=== PATIENT | female | born 1955 | race Two or more races ===

== ENCOUNTER 2017-04-24 20:32 | Emergency (ER) | payer MEDICAID, OTHER ==
[~2017-04-24] VITALS: Ht 157.5 cm; Wt 100.2 kg
[2017-04-24] MEDS ORDERED: cloNIDine HCL 0.1 MG TAB ONE (20:45)
[2017-04-24] MEDS ORDERED: cloNIDine HCL 0.1 MG TAB PO ONE (21:00)
[2017-04-24 22:43] VITALS: BP 138/71
[2017-04-24] MEDS ORDERED: KETOROLAC TROMETH 60MG/2ML VIAL IM ONE (23:15)
[2017-04-24] MEDS ORDERED: HYDROcodone-ACET 5/325MG TAB PO ONE (23:15)
== END 2017-04-25 00:02 | disposition home or self-care (01) ==
LOC: ER 20:32
DX: S20.211A Contusion of right front wall of thorax, initial encounter (principal); I50.9 Heart failure, unspecified; I11.0 Hypertensive heart disease with heart failure; E11.9 Type 2 diabetes mellitus without complications; E78.5 Hyperlipidemia, unspecified; V43.52XA Car driver injured in collision with other type car in traffic accident, initial encounter; Y93.89 Activity, other specified; Y92.488 Other paved roadways as the place of occurrence of the external cause; Y99.8 Other external cause status
CPT/HCPCS: 71010; 73030; 96372; 99284; J1885

== ENCOUNTER 2017-10-03 09:30 | Inpatient (IN) | payer OTHER, MEDICAID ==
[~2017-10-03] VITALS: Ht 157.5 cm; Wt 87.2 kg
[2017-10-03 10:19] LABS: Basophils # (auto) 0 uL; Basophils % (auto) 0.4 % (0.0-2.0); Eosinophils # (auto) 0 uL; Eosinophils % (auto) 0.5 % (0.0-7.0); Lymphocytes # (auto) 0.5 uL; Lymphocytes % (auto) 7.5 % (10.0-50.0); Mean Corpuscular Hemoglobin 31.7 pg (28.0-32.0); Mean Corpuscular Hgb Conc. 32.4 g/dL (32.0-36.0); Mean Corpuscular Volume 97.9 fL (80.0-100.0); Monocytes # (auto) 0.3 uL; Monocytes % (auto) 5.4 % (0.0-12.0); Neutrophils # (auto) 5.5 uL; Neutrophils % (auto) 86.2 % (37.0-80.0); Platelet Count (auto) 196 10^3/uL (140-450); Red Blood Cells 3.16 10^6/uL (4.0-5.20); Red Cell Distribution Width 16.2 % (11.8-14.3); White Blood Cell 6.3 10^3/uL (4.4-10.8)
[2017-10-03 10:24] LABS: Albumin 2.8 g/dL (3.4-5.0); BUN/Creatinine Ratio 18.6; Bilirubin, Total 0.3 mg/dL (0.2-1.0); Calcium 8.4 mg/dL (8.5-10.1); Magnesium 2.5 mg/dL (1.6-2.6); Total Protein 7.4 g/dL (6.4-8.2)
[2017-10-03 10:31] LABS: Potassium 5.6 mmol/L (3.5-5.1)
[2017-10-03] MEDS ORDERED: FUROSEMIDE 40 MG/4 ML VIAL IV ONE (16:45)
[2017-10-03] MEDS ORDERED: cefTRIAXone 1GM/10ml IVPUSH 10 ML IV ONE (16:45)
[2017-10-03] MEDS ORDERED: ALBUTEROL SULF 2.5 MG/0.5ML(0.5%) NEB SOLN NEB PRN (17:00)
[2017-10-03] MEDS ORDERED: LORazepam 0.5 MG TAB PO PRN (17:00)
[2017-10-03] MEDS ORDERED: LACTULOSE 20Gm/30ML SOLN PO PRN (17:00)
[2017-10-03] MEDS ORDERED: DEXTROSE (50%) 50ML SYRG IV PRN (17:00)
[2017-10-03] MEDS ORDERED: ACETAMINOPHEN 500 MG TAB PO PRN (17:00)
[2017-10-03] MEDS ORDERED: NITROGLYCERIN 0.4 MG SL TAB SL PRN (17:00)
[2017-10-03] MEDS ORDERED: LEVOFLOXACIN 500MG 100 ML IV ONE (17:00)
[2017-10-03] MEDS ORDERED: amLODIPine BESYLATE 5 MG TAB PO ONE (17:00)
[2017-10-03] MEDS ORDERED: ISOSORBIDE DINITRATE 10 MG TAB PO ONE (17:00)
[2017-10-03] MEDS ORDERED: MORPHINE SULFATE 4 MG/ML SYR/VIAL IV PRN ×2 (17:00)
[2017-10-03] MEDS ORDERED: HYDROcodone-ACET 5/325MG TAB PO PRN (17:00)
[2017-10-03] MEDS ORDERED: PROMETHAZINE HCL 25 MG/ML 1ML IV PRN (17:00)
[2017-10-03 17:20] LABS: INR 0.94 (0.9-1.15); Partial Thromboplastin Time 25.9 sec (22.64-33.71); Prothrombin Time 10.2 sec (9.37-12.3)
[2017-10-03 17:46] LABS: Alcohol, Urine < 3.0 mg/dL (0-5); Amphetamine Screen, Urine NEGATIVE (NEGATIVE); Barbiturate Scree,Urine NEGATIVE (NEGATIVE); Benzodiazephine Screen, Urine NEGATIVE (NEGATIVE); Cannabinoid Screen, Urine NEGATIVE (NEGATIVE); Cocaine Screen, Urine NEGATIVE (NEGATIVE); Opiate Scree,Urine NEGATIVE (NEGATIVE); Phencyclidine Screen, Urine NEGATIVE (NEGATIVE)
[2017-10-03 18:00] LABS: Urine Bacteria MANY /hpf (None Seen); Urine Blood 1+ /uL (Negative); Urine Budding Yeast MODERATE /hpf (None Seen); Urine Hyaline Cast FEW /lpf (0 - 2); Urine Specific Gravity 1.017 (1.001-1.035); Urine WBC 135 /hpf (0 - 5); Urine WBC Clumps PRESENT /hpf (None Seen)
[2017-10-03] MEDS: ALBUTEROL SULF 2.5 MG/0.5ML(0.5%) NEB SOLN NEB SCH ×2 (18:24→23:43)
[2017-10-03] MEDS: FUROSEMIDE 40 MG/4 ML VIAL IV SCH (18:26)
[2017-10-03] MEDS ORDERED: FUR20T (18:52)
[2017-10-03] MEDS ORDERED: INSLISPI SC (18:52)
[2017-10-03 18:54] VITALS: BP 164/88
[2017-10-03] MEDS: ACCU-CHEK COMFORT CURVE STRIP VI SCH (20:30)
[2017-10-03] MEDS: InsuLIN REG 1unit/0.01ml Soln (100units/ml) SC SCH (20:30)
[2017-10-03] MEDS: CARVEDILOL 3.125 MG TAB PO SCH (21:45)
[2017-10-04] MEDS: ACCU-CHEK COMFORT CURVE STRIP VI SCH ×6 (00:03→21:23)
[2017-10-04] MEDS: InsuLIN REG 1unit/0.01ml Soln (100units/ml) SC SCH ×6 (00:07→21:28)
[2017-10-04] MEDS: TEMAZEPAM 15 MG CAP PO PRN ×2 (01:30→22:54)
[2017-10-04 05:57] LABS: Basophils # (auto) 0 uL; Basophils % (auto) 0.4 % (0.0-2.0); Eosinophils # (auto) 0.2 uL; Eosinophils % (auto) 2.3 % (0.0-7.0); Hematocrit 27.6 % (36.0-46.0); Hemoglobin 9.3 g/dL (12.2-16.2); Lymphocytes # (auto) 1.2 uL; Lymphocytes % (auto) 17.8 % (10.0-50.0); Mean Corpuscular Hemoglobin 32.6 pg (28.0-32.0); Mean Corpuscular Hgb Conc. 33.7 g/dL (32.0-36.0); Mean Corpuscular Volume 96.6 fL (80.0-100.0); Monocytes # (auto) 0.5 uL; Monocytes % (auto) 7.6 % (0.0-12.0); Neutrophils # (auto) 4.9 uL; Neutrophils % (auto) 71.9 % (37.0-80.0); Nucleated Red Blood Cells % 0.1 %; Platelet Count (auto) 188 10^3/uL (140-450); Red Blood Cells 2.86 10^6/uL (4.0-5.20); Red Cell Distribution Width 15.9 % (11.8-14.3); White Blood Cell 6.9 10^3/uL (4.4-10.8)
[2017-10-04] MEDS: ALBUTEROL SULF 2.5 MG/0.5ML(0.5%) NEB SOLN NEB SCH ×3 (06:13→18:04)
[2017-10-04 06:29] LABS: Albumin 2.7 g/dL (3.4-5.0); BUN/Creatinine Ratio 18.4; Bilirubin, Total 0.3 mg/dL (0.2-1.0); Calcium 8.8 mg/dL (8.5-10.1); Potassium 4.6 mmol/L (3.5-5.1)
[2017-10-04] MEDS: ISOSORBIDE DINITRATE 10 MG TAB PO SCH ×3 (06:30→18:45)
[2017-10-04] MEDS: FUROSEMIDE 40 MG/4 ML VIAL IV SCH ×2 (06:30→18:44)
[2017-10-04] MEDS ORDERED: ENOXAPARIN SOD 40 MG/0.4 ML SYRINGE SC SCH (10:00)
[2017-10-04] MEDS: CARVEDILOL 3.125 MG TAB PO SCH ×2 (10:33→22:50)
[2017-10-04] MEDS: ENOXAPARIN SOD 30 MG/0.3 ML SYRINGE SC SCH (10:33)
[2017-10-04] MEDS: LEVOFLOXACIN 500MG 100 ML IV SCH (10:33)
[2017-10-04] MEDS: amLODIPine BESYLATE 5 MG TAB PO SCH (10:33)
[2017-10-04] MEDS: PANTOPRAZOLE 40 MG TAB PO SCH (10:33)
[2017-10-04] MEDS: ASPirin 81 mg TAB PO SCH (10:33)
[2017-10-04] MEDS: NITROGLYCERIN 0.2MG/HR TOPICAL PATCH TD SCH (10:34)
[2017-10-04 22:27] VITALS: BP_SYST 159; BP_SYST 170; BP_DIAS 82; BP_DIAS 83
[2017-10-04] MEDS: LABETALOL HCL 5 MG/ML ML 20ML VIAL IV PRN (22:51)
[2017-10-04 23:14] VITALS: BP 134/75
[2017-10-05] MEDS: InsuLIN REG 1unit/0.01ml Soln (100units/ml) SC SCH ×6 (00:01→22:35)
[2017-10-05] MEDS: ACCU-CHEK COMFORT CURVE STRIP VI SCH ×6 (00:01→22:27)
[2017-10-05] MEDS: FUROSEMIDE 40 MG/4 ML VIAL IV SCH ×2 (05:13→17:16)
[2017-10-05] MEDS: ISOSORBIDE DINITRATE 10 MG TAB PO SCH ×3 (05:14→17:15)
[2017-10-05 05:41] VITALS: BP 152/88
[2017-10-05] MEDS: ALBUTEROL SULF 2.5 MG/0.5ML(0.5%) NEB SOLN NEB SCH ×2 (06:36)
[2017-10-05 07:13] LABS: Basophils # (auto) 0 uL; Basophils % (auto) 0.6 % (0.0-2.0); Eosinophils # (auto) 0.2 uL; Eosinophils % (auto) 2.7 % (0.0-7.0); Hematocrit 28.3 % (36.0-46.0); Hemoglobin 9.4 g/dL (12.2-16.2); Mean Corpuscular Hemoglobin 32.2 pg (28.0-32.0); Mean Corpuscular Hgb Conc. 33.2 g/dL (32.0-36.0); Mean Corpuscular Volume 96.9 fL (80.0-100.0); Monocytes # (auto) 0.6 uL; Monocytes % (auto) 9.2 % (0.0-12.0); Neutrophils # (auto) 4.7 uL; Neutrophils % (auto) 72.5 % (37.0-80.0); Platelet Count (auto) 192 10^3/uL (140-450); Red Blood Cells 2.92 10^6/uL (4.0-5.20); Red Cell Distribution Width 15.4 % (11.8-14.3); White Blood Cell 6.5 10^3/uL (4.4-10.8)
[2017-10-05 07:42] LABS: Albumin 2.7 g/dL (3.4-5.0); BUN/Creatinine Ratio 16.9; Bilirubin, Total 0.3 mg/dL (0.2-1.0); Calcium 8.4 mg/dL (8.5-10.1); Phosphorus 5.7 mg/dL (2.5-4.90); Potassium 4.5 mmol/L (3.5-5.1); Uric Acid 5.8 mg/dL (2.6-6.0)
[2017-10-05 08:00] VITALS: BP_SYST 145; BP_SYST 152; BP_DIAS 114; BP_DIAS 88
[2017-10-05] MEDS: LABETALOL HCL 5 MG/ML ML 20ML VIAL IV PRN (08:10)
[2017-10-05] MEDS: LEVOFLOXACIN 500MG 100 ML IV SCH (09:04)
[2017-10-05] MEDS: NITROGLYCERIN 0.2MG/HR TOPICAL PATCH TD SCH (09:05)
[2017-10-05] MEDS: CARVEDILOL 3.125 MG TAB PO SCH ×2 (09:07→22:26)
[2017-10-05] MEDS: amLODIPine BESYLATE 5 MG TAB PO SCH (09:08)
[2017-10-05] MEDS: ASPirin 81 mg TAB PO SCH (09:08)
[2017-10-05] MEDS: PANTOPRAZOLE 40 MG TAB PO SCH (09:08)
[2017-10-05] MEDS: ENOXAPARIN SOD 30 MG/0.3 ML SYRINGE SC SCH (09:09)
[2017-10-05 09:35] VITALS: BP 148/64
[2017-10-05] MEDS ORDERED: CARVEDILOL 3.125 MG TAB PO ONE (09:45)
[2017-10-05] MEDS ORDERED: ATORVASTATIN 20 MG TAB PO ONE (09:45)
[2017-10-05] MEDS ORDERED: CARVEDILOL 3.125 MG TAB PO SCH (10:00)
[2017-10-05] MEDS ORDERED: DEXTROSE (50%) 50ML SYRG IV PRN (10:00)
[2017-10-05 12:15] LABS: % Iron Saturation 16.7 % (15-50)
[2017-10-05 13:00] VITALS: BP 99/78
[2017-10-05 17:48] VITALS: BP 134/70
[2017-10-05 22:08] VITALS: BP 134/79
[2017-10-05] MEDS: ATORVASTATIN 20 MG TAB PO SCH (22:27)
[2017-10-06] MEDS: TEMAZEPAM 15 MG CAP PO PRN (00:21)
[2017-10-06] MEDS: ISOSORBIDE DINITRATE 10 MG TAB PO SCH ×3 (05:57→18:27)
[2017-10-06] MEDS: FUROSEMIDE 40 MG/4 ML VIAL IV SCH (05:57)
[2017-10-06 06:04] VITALS: BP 152/81
[2017-10-06] MEDS: InsuLIN REG 1unit/0.01ml Soln (100units/ml) SC SCH ×4 (06:39→22:00)
[2017-10-06] MEDS: ACCU-CHEK COMFORT CURVE STRIP VI SCH ×4 (06:39→22:00)
[2017-10-06 08:00] VITALS: BP 155/71
[2017-10-06 08:44] LABS: BUN/Creatinine Ratio 17.1; Calcium 8.2 mg/dL (8.5-10.1); Phosphorus 5.8 mg/dL (2.5-4.90); Potassium 4.3 mmol/L (3.5-5.1); Uric Acid 6.4 mg/dL (2.6-6.0)
[2017-10-06] MEDS: PANTOPRAZOLE 40 MG TAB PO SCH (08:53)
[2017-10-06] MEDS: ASPirin 81 mg TAB PO SCH (08:53)
[2017-10-06] MEDS: ENOXAPARIN SOD 30 MG/0.3 ML SYRINGE SC SCH (08:53)
[2017-10-06] MEDS: CARVEDILOL 3.125 MG TAB PO SCH ×2 (08:54→23:57)
[2017-10-06] MEDS ORDERED: PNEUMOCOCCAL VACC POLYS 25 MCG/0.5 ML VIAL IM ONE (09:00)
[2017-10-06 09:14] VITALS: BP 148/70
[2017-10-06] MEDS ORDERED: SERTRALINE HCL 50 MG TAB PO ONE (12:30)
[2017-10-06 13:39] VITALS: BP 152/79
[2017-10-06 17:00] VITALS: BP 130/86
[2017-10-06] MEDS: ATORVASTATIN 20 MG TAB PO SCH (23:57)
[2017-10-07] MEDS: INSULIN LANTUS (GLARGINE) 1 /0.01ml (100units/ml) SC SCH ×2 (00:11→21:25)
[2017-10-07 05:06] VITALS: BP 140/66
[2017-10-07] MEDS: ACCU-CHEK COMFORT CURVE STRIP VI SCH ×4 (06:21→21:22)
[2017-10-07] MEDS: InsuLIN REG 1unit/0.01ml Soln (100units/ml) SC SCH ×4 (06:21→21:25)
[2017-10-07] MEDS: ISOSORBIDE DINITRATE 10 MG TAB PO SCH ×3 (06:21→17:55)
[2017-10-07 07:28] VITALS: BP 144/74
[2017-10-07 07:30] LABS: BUN/Creatinine Ratio 17.3; Calcium 8.2 mg/dL (8.5-10.1); Potassium 4.2 mmol/L (3.5-5.1)
[2017-10-07 08:00] VITALS: BP 140/66
[2017-10-07 08:59] LABS: Hepatitis B Surface Antibody Positive
[2017-10-07] MEDS: ENOXAPARIN SOD 30 MG/0.3 ML SYRINGE SC SCH (09:04)
[2017-10-07] MEDS: PANTOPRAZOLE 40 MG TAB PO SCH (09:05)
[2017-10-07] MEDS: CARVEDILOL 3.125 MG TAB PO SCH ×2 (09:05→21:19)
[2017-10-07] MEDS: ASPirin 81 mg TAB PO SCH (09:05)
[2017-10-07] MEDS: SERTRALINE HCL 50 MG TAB PO SCH (09:05)
[2017-10-07 09:15] LABS: Hepatitis B Surface Antigen Negative (Negative)
[2017-10-07 09:45] LABS: Hepatitis C Antibody Positive (Negative)
[2017-10-07] MEDS ORDERED: PNEUMOCOCCAL VACC POLYS 25 MCG/0.5 ML VIAL IM ONE ×2 (10:00)
[2017-10-07 11:29] VITALS: BP 140/80
[2017-10-07] MEDS ORDERED: BUMETANIDE 1 MG TAB PO ONE (13:30)
[2017-10-07] MEDS ORDERED: CAR3125T PO (13:39)
[2017-10-07] MEDS ORDERED: ATOR20TA50 PO (13:39)
[2017-10-07] MEDS ORDERED: BUME1TAB PO (13:39)
[2017-10-07] MEDS ORDERED: ISOS10TA2 PO (13:39)
[2017-10-07] MEDS ORDERED: SERT-138 PO (13:39)
[2017-10-07] MEDS ORDERED: PANT40T PO (13:39)
[2017-10-07] MEDS ORDERED: INSLANTI SC (13:39)
[2017-10-07] MEDS ORDERED: ASPI81CH43 PO (13:39)
[2017-10-07 16:19] VITALS: BP 142/76
[2017-10-07] MEDS: BUMETANIDE 1 MG TAB PO SCH (17:55)
[2017-10-07] MEDS: ATORVASTATIN 20 MG TAB PO SCH (21:19)
[2017-10-07 22:23] VITALS: BP 133/70
[2017-10-08 04:32] VITALS: BP 147/74
[2017-10-08] MEDS: ISOSORBIDE DINITRATE 10 MG TAB PO SCH ×3 (06:26→17:46)
[2017-10-08] MEDS: BUMETANIDE 1 MG TAB PO SCH ×2 (06:26→17:46)
[2017-10-08] MEDS: ACCU-CHEK COMFORT CURVE STRIP VI SCH ×4 (06:27→21:52)
[2017-10-08] MEDS: InsuLIN REG 1unit/0.01ml Soln (100units/ml) SC SCH ×4 (06:30→22:01)
[2017-10-08 07:00] VITALS: BP 136/69
[2017-10-08 08:00] VITALS: BP 136/69
[2017-10-08] MEDS: ASPirin 81 mg TAB PO SCH (09:41)
[2017-10-08] MEDS: PANTOPRAZOLE 40 MG TAB PO SCH (09:41)
[2017-10-08] MEDS: ENOXAPARIN SOD 30 MG/0.3 ML SYRINGE SC SCH (09:43)
[2017-10-08] MEDS: CARVEDILOL 3.125 MG TAB PO SCH ×2 (09:43→21:51)
[2017-10-08] MEDS: SERTRALINE HCL 50 MG TAB PO SCH (09:43)
[2017-10-08 12:03] VITALS: BP 147/69
[2017-10-08 16:32] VITALS: BP 134/71
[2017-10-08] MEDS: ATORVASTATIN 20 MG TAB PO SCH (21:51)
[2017-10-08] MEDS: INSULIN LANTUS (GLARGINE) 1 /0.01ml (100units/ml) SC SCH (22:00)
[2017-10-08 22:26] VITALS: BP 144/67
[2017-10-09 05:16] VITALS: BP 124/71
[2017-10-09] MEDS: BUMETANIDE 1 MG TAB PO SCH ×2 (06:13→17:19)
[2017-10-09] MEDS: ISOSORBIDE DINITRATE 10 MG TAB PO SCH ×3 (06:14→17:19)
[2017-10-09] MEDS: InsuLIN REG 1unit/0.01ml Soln (100units/ml) SC SCH ×4 (06:21→21:53)
[2017-10-09] MEDS: ACCU-CHEK COMFORT CURVE STRIP VI SCH ×4 (06:21→21:50)
[2017-10-09 08:00] VITALS: BP 124/71
[2017-10-09 08:30] VITALS: BP 125/81
[2017-10-09] MEDS: PANTOPRAZOLE 40 MG TAB PO SCH (08:50)
[2017-10-09] MEDS: ENOXAPARIN SOD 30 MG/0.3 ML SYRINGE SC SCH (08:50)
[2017-10-09] MEDS: ASPirin 81 mg TAB PO SCH (08:50)
[2017-10-09] MEDS: SERTRALINE HCL 50 MG TAB PO SCH (08:50)
[2017-10-09] MEDS: CARVEDILOL 3.125 MG TAB PO SCH ×2 (08:51→21:48)
[2017-10-09 10:25] LABS: BUN/Creatinine Ratio 17.1; Potassium 3.9 mmol/L (3.5-5.1)
[2017-10-09 12:30] VITALS: BP 139/67
[2017-10-09 16:34] VITALS: BP 130/68
[2017-10-09] MEDS: ATORVASTATIN 20 MG TAB PO SCH (21:47)
[2017-10-09] MEDS: TEMAZEPAM 15 MG CAP PO PRN (21:48)
[2017-10-09] MEDS: INSULIN LANTUS (GLARGINE) 1 /0.01ml (100units/ml) SC SCH (21:53)
[2017-10-09 21:54] VITALS: BP 157/97
[2017-10-10 04:41] VITALS: BP 117/72
[2017-10-10] MEDS: BUMETANIDE 1 MG TAB PO SCH ×2 (06:25→17:18)
[2017-10-10] MEDS: ACCU-CHEK COMFORT CURVE STRIP VI SCH ×4 (06:26→22:29)
[2017-10-10] MEDS: ISOSORBIDE DINITRATE 10 MG TAB PO SCH ×3 (06:26→17:19)
[2017-10-10] MEDS: InsuLIN REG 1unit/0.01ml Soln (100units/ml) SC SCH ×4 (06:29→22:28)
[2017-10-10 07:24] LABS: BUN/Creatinine Ratio 18.3; Calcium 8.6 mg/dL (8.5-10.1)
[2017-10-10 07:32] LABS: Basophils # (auto) 0 uL; Basophils % (auto) 0.5 % (0.0-2.0); Eosinophils # (auto) 0.1 uL; Hemoglobin 8.3 g/dL (12.2-16.2); Monocytes # (auto) 0.5 uL; Nucleated Red Blood Cells % 0.1 %
[2017-10-10 07:34] LABS: Eosinophils % (auto) 1.9 % (0.0-7.0); Hematocrit 24.4 % (36.0-46.0); Lymphocytes # (auto) 0.6 uL; Mean Corpuscular Hemoglobin 32.9 pg (28.0-32.0); Mean Corpuscular Hgb Conc. 34.2 g/dL (32.0-36.0); Mean Corpuscular Volume 96.2 fL (80.0-100.0); Monocytes % (auto) 8.9 % (0.0-12.0); Neutrophils % (auto) 77.7 % (37.0-80.0); Platelet Count (auto) 146 10^3/uL (140-450); Red Blood Cells 2.53 10^6/uL (4.0-5.20); Red Cell Distribution Width 14.9 % (11.8-14.3); White Blood Cell 5.2 10^3/uL (4.4-10.8)
[2017-10-10 08:00] VITALS: BP 117/72
[2017-10-10 08:46] VITALS: BP 124/69
[2017-10-10] MEDS: SERTRALINE HCL 50 MG TAB PO SCH (09:18)
[2017-10-10] MEDS: PANTOPRAZOLE 40 MG TAB PO SCH (09:18)
[2017-10-10] MEDS: ENOXAPARIN SOD 30 MG/0.3 ML SYRINGE SC SCH (09:18)
[2017-10-10] MEDS: ASPirin 81 mg TAB PO SCH (09:18)
[2017-10-10] MEDS: CARVEDILOL 3.125 MG TAB PO SCH ×2 (09:19→22:28)
[2017-10-10 11:53] VITALS: BP 130/71
[2017-10-10 16:30] VITALS: BP 140/71
[2017-10-10 22:00] VITALS: BP 143/73
[2017-10-10] MEDS: ATORVASTATIN 20 MG TAB PO SCH (22:25)
[2017-10-10] MEDS: INSULIN LANTUS (GLARGINE) 1 /0.01ml (100units/ml) SC SCH (22:29)
[2017-10-11 05:00] VITALS: BP 128/64
[2017-10-11] MEDS: ISOSORBIDE DINITRATE 10 MG TAB PO SCH ×3 (06:00→18:36)
[2017-10-11] MEDS: BUMETANIDE 1 MG TAB PO SCH ×2 (06:00→18:36)
[2017-10-11] MEDS: ACCU-CHEK COMFORT CURVE STRIP VI SCH ×4 (06:50→23:54)
[2017-10-11] MEDS: InsuLIN REG 1unit/0.01ml Soln (100units/ml) SC SCH ×4 (06:50→22:00)
[2017-10-11 09:00] VITALS: BP 123/65
[2017-10-11] MEDS: ASPirin 81 mg TAB PO SCH (10:55)
[2017-10-11] MEDS: CARVEDILOL 3.125 MG TAB PO SCH ×2 (10:55→23:00)
[2017-10-11] MEDS: SERTRALINE HCL 50 MG TAB PO SCH (10:56)
[2017-10-11] MEDS: ENOXAPARIN SOD 30 MG/0.3 ML SYRINGE SC SCH (10:56)
[2017-10-11] MEDS: PANTOPRAZOLE 40 MG TAB PO SCH (10:56)
[2017-10-11 17:00] VITALS: BP 146/78
[2017-10-11 22:00] VITALS: BP 149/69
[2017-10-11] MEDS: ATORVASTATIN 20 MG TAB PO SCH (23:01)
[2017-10-11] MEDS: INSULIN LANTUS (GLARGINE) 1 /0.01ml (100units/ml) SC SCH (23:02)
[2017-10-12 05:00] VITALS: BP 138/64
[2017-10-12] MEDS: BUMETANIDE 1 MG TAB PO SCH ×2 (06:27→18:00)
[2017-10-12] MEDS: ISOSORBIDE DINITRATE 10 MG TAB PO SCH ×3 (06:28→18:00)
[2017-10-12] MEDS: InsuLIN REG 1unit/0.01ml Soln (100units/ml) SC SCH ×4 (07:04→21:56)
[2017-10-12] MEDS: ACCU-CHEK COMFORT CURVE STRIP VI SCH ×4 (07:04→21:57)
[2017-10-12 07:34] LABS: BUN/Creatinine Ratio 18.5; Calcium 8.2 mg/dL (8.5-10.1)
[2017-10-12 08:41] VITALS: BP 144/69
[2017-10-12] MEDS: PANTOPRAZOLE 40 MG TAB PO SCH (12:35)
[2017-10-12] MEDS: CARVEDILOL 3.125 MG TAB PO SCH ×2 (12:35→21:55)
[2017-10-12] MEDS: ENOXAPARIN SOD 30 MG/0.3 ML SYRINGE SC SCH (12:35)
[2017-10-12] MEDS: SERTRALINE HCL 50 MG TAB PO SCH (12:35)
[2017-10-12] MEDS: ASPirin 81 mg TAB PO SCH (12:35)
[2017-10-12 13:00] VITALS: BP 157/72
[2017-10-12 16:50] VITALS: BP 141/68
[2017-10-12 21:30] VITALS: BP 164/77
[2017-10-12] MEDS: ATORVASTATIN 20 MG TAB PO SCH (21:55)
[2017-10-12] MEDS: INSULIN LANTUS (GLARGINE) 1 /0.01ml (100units/ml) SC SCH (21:56)
[2017-10-12] MEDS: TEMAZEPAM 15 MG CAP PO PRN (23:24)
[2017-10-13] VITALS (72 sets, daily range): BP systolic 116–196; BP diastolic 54–98
[2017-10-13] MEDS ORDERED: ETOMIDATE (2MG/ML) 20ML VIAL IV ONE ×2 (02:02→03:00)
[2017-10-13] MEDS ORDERED: SUCCINYLCHOLINE CHLORIDE 20 MG/ML 10ML VIAL IV ONE (02:02)
[2017-10-13] MEDS ORDERED: PROPOFOL 100 ML IV ONE ×2 (02:14→02:15)
[2017-10-13] MEDS: PROPOFOL 100 ML IV SCH ×5 (02:20→22:38)
[2017-10-13] MEDS: SODIUM CHLORIDE 0.9% 1,000 ML IV SCH (02:20)
[2017-10-13] MEDS ORDERED: ACETAMINOPHEN 650 mg PER 20 mL UD GT PRN (02:45)
[2017-10-13 02:54] LABS: Basophils # (auto) 0 uL; Basophils % (auto) 0.6 % (0.0-2.0); Eosinophils # (auto) 0.1 uL; Eosinophils % (auto) 1.8 % (0.0-7.0); Hematocrit 25.6 % (36.0-46.0); Hemoglobin 8.6 g/dL (12.2-16.2); Lymphocytes # (auto) 0.8 uL; Mean Corpuscular Hemoglobin 32.5 pg (28.0-32.0); Mean Corpuscular Hgb Conc. 33.6 g/dL (32.0-36.0); Mean Corpuscular Volume 96.8 fL (80.0-100.0); Monocytes # (auto) 0.3 uL; Monocytes % (auto) 6.8 % (0.0-12.0); Neutrophils # (auto) 3.8 uL; Neutrophils % (auto) 75.8 % (37.0-80.0); Platelet Count (auto) 175 10^3/uL (140-450); Red Blood Cells 2.64 10^6/uL (4.0-5.20); Red Cell Distribution Width 14.9 % (11.8-14.3)
[2017-10-13 03:08] LABS: INR 1.03 (0.9-1.15); Partial Thromboplastin Time 24.9 sec (22.64-33.71); Prothrombin Time 11.2 sec (9.37-12.3)
[2017-10-13 03:12] LABS: Albumin 2.5 g/dL (3.4-5.0); BUN/Creatinine Ratio 16.6; Calcium 8.1 mg/dL (8.5-10.1); Magnesium 2.5 mg/dL (1.6-2.6); Potassium 3.9 mmol/L (3.5-5.1)
[2017-10-13 03:14] LABS: Bilirubin, Total 0.4 mg/dL (0.2-1.0)
[2017-10-13] MEDS: BUMETANIDE 1 MG TAB PO SCH (05:07)
[2017-10-13] MEDS: ACCU-CHEK COMFORT CURVE STRIP VI SCH ×4 (05:08→21:36)
[2017-10-13] MEDS: InsuLIN REG 1unit/0.01ml Soln (100units/ml) SC SCH ×4 (05:08→21:35)
[2017-10-13] MEDS: ISOSORBIDE DINITRATE 10 MG TAB PO SCH ×3 (05:08→18:42)
[2017-10-13] MEDS: CARVEDILOL 3.125 MG TAB PO SCH (09:31)
[2017-10-13] MEDS: SERTRALINE HCL 50 MG TAB PO SCH (10:00)
[2017-10-13] MEDS ORDERED: hydrALAZINE HCL 20 MG/ML VL IV ONE (10:00)
[2017-10-13] MEDS: PANTOPRAZOLE 40 MG/10 ML VIAL IV SCH (10:15)
[2017-10-13] MEDS: ASPirin 81 mg TAB PO SCH (10:15)
[2017-10-13] MEDS: ENOXAPARIN SOD 30 MG/0.3 ML SYRINGE SC SCH (10:15)
[2017-10-13] MEDS ORDERED: BUMETANIDE (0.25MG/ML) 4 ML VIAL IV ONE (10:45)
[2017-10-13] MEDS: hydrALAZINE HCL 20 MG/ML VL IV PRN ×2 (11:30→21:35)
[2017-10-13 11:41] LABS: Albumin 2.5 g/dL (3.4-5.0); BUN/Creatinine Ratio 17.7; Bilirubin, Total 0.5 mg/dL (0.2-1.0); Calcium 8.2 mg/dL (8.5-10.1); Potassium 3.3 mmol/L (3.5-5.1); Total Protein 6.5 g/dL (6.4-8.2)
[2017-10-13] MEDS ORDERED: POTASSIUM CHL 20MEQ/100ML 100 ML IV ONE (12:30)
[2017-10-13 16:56] LABS: Urine Bacteria FEW /hpf (None Seen); Urine Blood 1+ /uL (Negative); Urine Mucus FEW (None Seen); Urine Specific Gravity 1.007 (1.001-1.035); Urine WBC 3 /hpf (0 - 5)
[2017-10-13 16:58] LABS: Creatinine, Urine 20 mg/dL (30.0-125.0); Sodium Urine 77 mmol/L (40-220)
[2017-10-13] MEDS: BUMETANIDE (0.25MG/ML) 4 ML VIAL IV SCH (18:42)
[2017-10-13] MEDS: ATORVASTATIN 20 MG TAB PO SCH (21:35)
[2017-10-13] MEDS: INSULIN LANTUS (GLARGINE) 1 /0.01ml (100units/ml) SC SCH (21:41)
[2017-10-14] VITALS (72 sets, daily range): BP systolic 118–186; BP diastolic 37–89
[2017-10-14 02:58] LABS: Basophils # (auto) 0 uL; Basophils % (auto) 0.4 % (0.0-2.0); Eosinophils # (auto) 0.1 uL; Eosinophils % (auto) 1.6 % (0.0-7.0); Hematocrit 27.6 % (36.0-46.0); Hemoglobin 9.4 g/dL (12.2-16.2); Lymphocytes # (auto) 0.8 uL; Lymphocytes % (auto) 11.4 % (10.0-50.0); Mean Corpuscular Hemoglobin 32.5 pg (28.0-32.0); Mean Corpuscular Hgb Conc. 34.2 g/dL (32.0-36.0); Mean Corpuscular Volume 95.1 fL (80.0-100.0); Monocytes # (auto) 0.6 uL; Monocytes % (auto) 7.7 % (0.0-12.0); Neutrophils # (auto) 5.7 uL; Neutrophils % (auto) 78.9 % (37.0-80.0); Platelet Count (auto) 177 10^3/uL (140-450); Red Cell Distribution Width 14.7 % (11.8-14.3); White Blood Cell 7.2 10^3/uL (4.4-10.8)
[2017-10-14] MEDS: SODIUM CHLORIDE 0.9% 1,000 ML IV SCH (03:00)
[2017-10-14 03:20] LABS: Albumin 2.5 g/dL (3.4-5.0); BUN/Creatinine Ratio 16.9; Bilirubin, Total 0.4 mg/dL (0.2-1.0); Calcium 8.3 mg/dL (8.5-10.1); Magnesium 2.4 mg/dL (1.6-2.6); Potassium 3.3 mmol/L (3.5-5.1); Total Protein 6.6 g/dL (6.4-8.2)
[2017-10-14] MEDS: PROPOFOL 100 ML IV SCH ×2 (03:44→06:41)
[2017-10-14] MEDS: ISOSORBIDE DINITRATE 10 MG TAB PO SCH ×3 (06:42→18:30)
[2017-10-14] MEDS: BUMETANIDE (0.25MG/ML) 4 ML VIAL IV SCH ×2 (06:42→18:30)
[2017-10-14] MEDS: ACCU-CHEK COMFORT CURVE STRIP VI SCH ×4 (06:43→22:00)
[2017-10-14] MEDS: InsuLIN REG 1unit/0.01ml Soln (100units/ml) SC SCH ×4 (06:43→22:00)
[2017-10-14] MEDS: SERTRALINE HCL 50 MG TAB PO SCH (10:36)
[2017-10-14] MEDS: ASPirin 81 mg TAB PO SCH (10:36)
[2017-10-14] MEDS: PANTOPRAZOLE 40 MG/10 ML VIAL IV SCH (10:36)
[2017-10-14] MEDS: ENOXAPARIN SOD 30 MG/0.3 ML SYRINGE SC SCH (10:37)
[2017-10-14] MEDS ORDERED: POTASSIUM CHLORIDE 60 MEQ, LIDOCAINE 1% (LOCAL ANESTH.) 6 ML in SODIUM CHL 0.9% 500 ML IV ONE (10:45)
[2017-10-14] MEDS ORDERED: EPINEPHrine HCL 1 MG/10 ML SYRG IV ONE (12:45)
[2017-10-14] MEDS: hydrALAZINE HCL 20 MG/ML VL IV PRN (14:14)
[2017-10-14] MEDS ORDERED: ALBUTEROL SULF 2.5 MG/0.5ML(0.5%) NEB SOLN NEB PRN (14:30)
[2017-10-14] MEDS ORDERED: IPRATROPIUM BROM 0.5 MG/2.5ML INH SOL NEB SCH (18:00)
[2017-10-14] MEDS: ALBUTEROL SULF 2.5 MG/0.5ML(0.5%) NEB SOLN HHN SCH ×2 (18:23→23:59)
[2017-10-14] MEDS: IPRATROPIUM BROM 0.5 MG/2.5ML INH SOL NEB SCH (18:23)
[2017-10-14] MEDS: ATORVASTATIN 20 MG TAB PO SCH (22:00)
[2017-10-14] MEDS: INSULIN LANTUS (GLARGINE) 1 /0.01ml (100units/ml) SC SCH (22:00)
[2017-10-15] VITALS (32 sets, daily range): BP systolic 108–179; BP diastolic 52–104
[2017-10-15] MEDS: SODIUM CHLORIDE 0.9% 1,000 ML IV SCH (03:00)
[2017-10-15 04:09] LABS: BUN/Creatinine Ratio 14.8; Calcium 8.6 mg/dL (8.5-10.1); Potassium 3.7 mmol/L (3.5-5.1)
[2017-10-15] MEDS: ALBUTEROL SULF 2.5 MG/0.5ML(0.5%) NEB SOLN HHN SCH ×3 (05:43→19:11)
[2017-10-15] MEDS: IPRATROPIUM BROM 0.5 MG/2.5ML INH SOL NEB SCH ×4 (05:43→19:11)
[2017-10-15] MEDS: BUMETANIDE (0.25MG/ML) 4 ML VIAL IV SCH ×2 (06:00→18:22)
[2017-10-15] MEDS: ISOSORBIDE DINITRATE 10 MG TAB PO SCH ×3 (06:00→18:22)
[2017-10-15] MEDS: InsuLIN REG 1unit/0.01ml Soln (100units/ml) SC SCH ×4 (07:00→22:34)
[2017-10-15] MEDS: ACCU-CHEK COMFORT CURVE STRIP VI SCH ×4 (07:00→22:18)
[2017-10-15] MEDS: ASPirin 81 mg TAB PO SCH (09:21)
[2017-10-15] MEDS: PANTOPRAZOLE 40 MG/10 ML VIAL IV SCH (09:21)
[2017-10-15] MEDS: ENOXAPARIN SOD 30 MG/0.3 ML SYRINGE SC SCH (09:21)
[2017-10-15] MEDS: SERTRALINE HCL 50 MG TAB PO SCH (09:22)
[2017-10-15] MEDS: hydrALAZINE HCL 25 MG TAB PO SCH ×2 (14:20→22:32)
[2017-10-15] MEDS: SALINE 0.65 % NASAL SPRAY 45ML BOTTLE EACHNOSTRI SCH ×2 (18:00→22:32)
[2017-10-15] MEDS: ATORVASTATIN 20 MG TAB PO SCH (22:27)
[2017-10-15] MEDS: INSULIN LANTUS (GLARGINE) 1 /0.01ml (100units/ml) SC SCH (22:33)
[2017-10-16] VITALS (7 sets, daily range): BP systolic 125–160; BP diastolic 61–78
[2017-10-16] MEDS: ALBUTEROL SULF 2.5 MG/0.5ML(0.5%) NEB SOLN HHN SCH ×4 (00:59→18:36)
[2017-10-16] MEDS: IPRATROPIUM BROM 0.5 MG/2.5ML INH SOL NEB SCH ×4 (00:59→18:36)
[2017-10-16] MEDS: SODIUM CHLORIDE 0.9% 1,000 ML IV SCH (03:19)
[2017-10-16] MEDS: hydrALAZINE HCL 20 MG/ML VL IV PRN (05:01)
[2017-10-16] MEDS: hydrALAZINE HCL 25 MG TAB PO SCH ×3 (06:28→21:48)
[2017-10-16] MEDS: ISOSORBIDE DINITRATE 10 MG TAB PO SCH ×3 (06:30→18:08)
[2017-10-16] MEDS: SALINE 0.65 % NASAL SPRAY 45ML BOTTLE EACHNOSTRI SCH ×4 (06:31→21:48)
[2017-10-16] MEDS: BUMETANIDE (0.25MG/ML) 4 ML VIAL IV SCH ×2 (06:32→18:06)
[2017-10-16] MEDS: ACCU-CHEK COMFORT CURVE STRIP VI SCH ×4 (06:57→21:46)
[2017-10-16] MEDS: InsuLIN REG 1unit/0.01ml Soln (100units/ml) SC SCH ×4 (06:58→21:46)
[2017-10-16] MEDS: PANTOPRAZOLE 40 MG/10 ML VIAL IV SCH (09:38)
[2017-10-16] MEDS: ASPirin 81 mg TAB PO SCH (09:38)
[2017-10-16] MEDS: ENOXAPARIN SOD 30 MG/0.3 ML SYRINGE SC SCH (09:38)
[2017-10-16] MEDS: SERTRALINE HCL 50 MG TAB PO SCH (09:38)
[2017-10-16] MEDS: INSULIN LANTUS (GLARGINE) 1 /0.01ml (100units/ml) SC SCH (21:46)
[2017-10-16] MEDS: ATORVASTATIN 20 MG TAB PO SCH (21:48)
[2017-10-17] VITALS (8 sets, daily range): BP systolic 150–188; BP diastolic 57–90
[2017-10-17] MEDS: IPRATROPIUM BROM 0.5 MG/2.5ML INH SOL NEB SCH ×4 (00:27→18:53)
[2017-10-17] MEDS: ALBUTEROL SULF 2.5 MG/0.5ML(0.5%) NEB SOLN HHN SCH ×4 (00:27→18:53)
[2017-10-17] MEDS: SODIUM CHLORIDE 0.9% 1,000 ML IV SCH (03:02)
[2017-10-17 05:04] LABS: Basophils # (auto) 0 uL; Basophils % (auto) 0.4 % (0.0-2.0); Eosinophils # (auto) 0.2 uL; Eosinophils % (auto) 2.8 % (0.0-7.0); Hematocrit 27.7 % (36.0-46.0); Hemoglobin 9.1 g/dL (12.2-16.2); Lymphocytes # (auto) 0.8 uL; Lymphocytes % (auto) 11.8 % (10.0-50.0); Mean Corpuscular Hemoglobin 31.7 pg (28.0-32.0); Mean Corpuscular Hgb Conc. 32.8 g/dL (32.0-36.0); Mean Corpuscular Volume 96.5 fL (80.0-100.0); Monocytes # (auto) 0.8 uL; Monocytes % (auto) 11.7 % (0.0-12.0); Neutrophils # (auto) 4.7 uL; Neutrophils % (auto) 73.3 % (37.0-80.0); Platelet Count (auto) 202 10^3/uL (140-450); Red Blood Cells 2.87 10^6/uL (4.0-5.20); White Blood Cell 6.5 10^3/uL (4.4-10.8)
[2017-10-17 05:27] LABS: Albumin 2.5 g/dL (3.4-5.0); Calcium 8.5 mg/dL (8.5-10.1)
[2017-10-17 05:35] LABS: BUN/Creatinine Ratio 12.7; Bilirubin, Total 0.3 mg/dL (0.2-1.0)
[2017-10-17 05:58] LABS: Phosphorus 4.2 mg/dL (2.5-4.90)
[2017-10-17] MEDS: hydrALAZINE HCL 25 MG TAB PO SCH ×3 (06:02→21:23)
[2017-10-17] MEDS: BUMETANIDE (0.25MG/ML) 4 ML VIAL IV SCH ×2 (06:02→18:35)
[2017-10-17] MEDS: ISOSORBIDE DINITRATE 10 MG TAB PO SCH ×3 (06:02→18:54)
[2017-10-17] MEDS: ACCU-CHEK COMFORT CURVE STRIP VI SCH ×4 (06:02→21:28)
[2017-10-17] MEDS: SALINE 0.65 % NASAL SPRAY 45ML BOTTLE EACHNOSTRI SCH ×5 (06:02→21:25)
[2017-10-17] MEDS: InsuLIN REG 1unit/0.01ml Soln (100units/ml) SC SCH ×4 (06:13→21:28)
[2017-10-17] MEDS: SERTRALINE HCL 50 MG TAB PO SCH (10:13)
[2017-10-17] MEDS: PANTOPRAZOLE 40 MG/10 ML VIAL IV SCH (10:13)
[2017-10-17] MEDS: ENOXAPARIN SOD 30 MG/0.3 ML SYRINGE SC SCH (10:13)
[2017-10-17] MEDS: ASPirin 81 mg TAB PO SCH (10:14)
[2017-10-17] MEDS: ATORVASTATIN 20 MG TAB PO SCH (21:23)
[2017-10-17] MEDS: INSULIN LANTUS (GLARGINE) 1 /0.01ml (100units/ml) SC SCH (21:28)
[2017-10-18] VITALS (7 sets, daily range): BP systolic 144–181; BP diastolic 64–84
[2017-10-18] MEDS: IPRATROPIUM BROM 0.5 MG/2.5ML INH SOL NEB SCH ×5 (01:04→22:11)
[2017-10-18] MEDS: ALBUTEROL SULF 2.5 MG/0.5ML(0.5%) NEB SOLN HHN SCH ×5 (01:04→22:12)
[2017-10-18] MEDS: BUMETANIDE (0.25MG/ML) 4 ML VIAL IV SCH ×2 (06:25→17:50)
[2017-10-18] MEDS: hydrALAZINE HCL 25 MG TAB PO SCH ×3 (06:26→22:19)
[2017-10-18] MEDS: ISOSORBIDE DINITRATE 10 MG TAB PO SCH ×3 (06:27→17:49)
[2017-10-18] MEDS: ACCU-CHEK COMFORT CURVE STRIP VI SCH ×5 (06:27→22:20)
[2017-10-18] MEDS: InsuLIN REG 1unit/0.01ml Soln (100units/ml) SC SCH ×5 (06:27→22:19)
[2017-10-18] MEDS: SALINE 0.65 % NASAL SPRAY 45ML BOTTLE EACHNOSTRI SCH ×4 (06:28→22:20)
[2017-10-18 07:10] LABS: Albumin 2.6 g/dL (3.4-5.0); BUN/Creatinine Ratio 11.5; Calcium 8.5 mg/dL (8.5-10.1); Potassium 3.8 mmol/L (3.5-5.1)
[2017-10-18 07:13] LABS: Bilirubin, Total 0.4 mg/dL (0.2-1.0); Total Protein 7.3 g/dL (6.4-8.2)
[2017-10-18] MEDS: ASPirin 81 mg TAB PO SCH (09:44)
[2017-10-18] MEDS: hydrALAZINE HCL 20 MG/ML VL IV PRN (09:44)
[2017-10-18] MEDS: ENOXAPARIN SOD 30 MG/0.3 ML SYRINGE SC SCH (09:44)
[2017-10-18] MEDS: PANTOPRAZOLE 40 MG/10 ML VIAL IV SCH (09:44)
[2017-10-18] MEDS: SERTRALINE HCL 50 MG TAB PO SCH (09:44)
[2017-10-18] MEDS ORDERED: LACTULOSE 20Gm/30ML SOLN PO PRN (11:30)
[2017-10-18] MEDS ORDERED: DEXTROSE (50%) 50ML SYRG IV PRN (11:30)
[2017-10-18] MEDS: ATORVASTATIN 20 MG TAB PO SCH (22:18)
[2017-10-18] MEDS: INSULIN LANTUS (GLARGINE) 1 /0.01ml (100units/ml) SC SCH (22:20)
[2017-10-19] MEDS: ALBUTEROL SULF 2.5 MG/0.5ML(0.5%) NEB SOLN HHN SCH ×7 (02:10→22:46)
[2017-10-19] MEDS: IPRATROPIUM BROM 0.5 MG/2.5ML INH SOL NEB SCH ×7 (02:10→22:46)
[2017-10-19 05:00] VITALS: BP 172/77
[2017-10-19] MEDS: hydrALAZINE HCL 20 MG/ML VL IV PRN ×2 (05:23→10:03)
[2017-10-19] MEDS: hydrALAZINE HCL 25 MG TAB PO SCH ×3 (06:00→22:19)
[2017-10-19 06:09] LABS: Calcium 8.7 mg/dL (8.5-10.1); Potassium 3.8 mmol/L (3.5-5.1)
[2017-10-19 06:16] LABS: BUN/Creatinine Ratio 10.7
[2017-10-19] MEDS: SALINE 0.65 % NASAL SPRAY 45ML BOTTLE EACHNOSTRI SCH ×4 (06:25→22:18)
[2017-10-19] MEDS: BUMETANIDE (0.25MG/ML) 4 ML VIAL IV SCH (06:26)
[2017-10-19] MEDS: ISOSORBIDE DINITRATE 10 MG TAB PO SCH ×3 (06:27→17:25)
[2017-10-19] MEDS: InsuLIN REG 1unit/0.01ml Soln (100units/ml) SC SCH ×4 (06:27→22:00)
[2017-10-19] MEDS: ACCU-CHEK COMFORT CURVE STRIP VI SCH ×4 (06:28→22:20)
[2017-10-19 08:30] VITALS: BP 156/68
[2017-10-19] MEDS: ENOXAPARIN SOD 30 MG/0.3 ML SYRINGE SC SCH (10:03)
[2017-10-19] MEDS: SERTRALINE HCL 50 MG TAB PO SCH (10:03)
[2017-10-19] MEDS: ASPirin 81 mg TAB PO SCH (10:03)
[2017-10-19] MEDS: PANTOPRAZOLE 40 MG/10 ML VIAL IV SCH (10:04)
[2017-10-19 12:57] VITALS: BP 154/72
[2017-10-19 16:27] VITALS: BP 148/57
[2017-10-19] MEDS: BUMETANIDE (0.25 MG/ML) INJ 10ML IV SCH (17:42)
[2017-10-19 22:00] VITALS: BP 115/73
[2017-10-19] MEDS: INSULIN LANTUS (GLARGINE) 1 /0.01ml (100units/ml) SC SCH (22:00)
[2017-10-19] MEDS: ATORVASTATIN 20 MG TAB PO SCH (22:19)
[2017-10-20] MEDS: hydrALAZINE HCL 20 MG/ML VL IV PRN (05:41)
[2017-10-20 05:47] VITALS: BP 167/81
[2017-10-20] MEDS: hydrALAZINE HCL 25 MG TAB PO SCH ×3 (06:00→22:09)
[2017-10-20] MEDS: SALINE 0.65 % NASAL SPRAY 45ML BOTTLE EACHNOSTRI SCH ×4 (06:19→22:09)
[2017-10-20] MEDS: BUMETANIDE (0.25 MG/ML) INJ 10ML IV SCH (06:38)
[2017-10-20] MEDS: ISOSORBIDE DINITRATE 10 MG TAB PO SCH ×3 (06:38→18:58)
[2017-10-20 06:55] LABS: Potassium 3.9 mmol/L (3.5-5.1)
[2017-10-20 06:59] LABS: Basophils # (auto) 0 uL; Basophils % (auto) 0.4 % (0.0-2.0); Eosinophils # (auto) 0.2 uL; Eosinophils % (auto) 2.4 % (0.0-7.0); Hematocrit 28.4 % (36.0-46.0); Hemoglobin 9.3 g/dL (12.2-16.2); Lymphocytes # (auto) 0.8 uL; Lymphocytes % (auto) 10.4 % (10.0-50.0); Mean Corpuscular Hemoglobin 31.4 pg (28.0-32.0); Mean Corpuscular Hgb Conc. 32.8 g/dL (32.0-36.0); Mean Corpuscular Volume 95.8 fL (80.0-100.0); Monocytes # (auto) 0.7 uL; Monocytes % (auto) 9.8 % (0.0-12.0); Neutrophils # (auto) 5.7 uL; Nucleated Red Blood Cells % 0.1 %; Platelet Count (auto) 217 10^3/uL (140-450); Red Blood Cells 2.96 10^6/uL (4.0-5.20); White Blood Cell 7.4 10^3/uL (4.4-10.8)
[2017-10-20] MEDS: InsuLIN REG 1unit/0.01ml Soln (100units/ml) SC SCH ×4 (07:00→22:08)
[2017-10-20] MEDS: ACCU-CHEK COMFORT CURVE STRIP VI SCH ×4 (07:01→22:10)
[2017-10-20 07:03] LABS: BUN/Creatinine Ratio 10.7; Calcium 8.7 mg/dL (8.5-10.1)
[2017-10-20] MEDS: ALBUTEROL SULF 2.5 MG/0.5ML(0.5%) NEB SOLN HHN SCH ×5 (07:13→22:39)
[2017-10-20] MEDS: IPRATROPIUM BROM 0.5 MG/2.5ML INH SOL NEB SCH ×5 (07:13→22:39)
[2017-10-20 09:00] VITALS: BP 140/64
[2017-10-20] MEDS: SERTRALINE HCL 50 MG TAB PO SCH (10:16)
[2017-10-20] MEDS: ENOXAPARIN SOD 30 MG/0.3 ML SYRINGE SC SCH (10:16)
[2017-10-20] MEDS: ASPirin 81 mg TAB PO SCH (10:16)
[2017-10-20] MEDS: PANTOPRAZOLE 40 MG/10 ML VIAL IV SCH (10:16)
[2017-10-20 13:00] VITALS: BP 138/68
[2017-10-20 17:20] VITALS: BP 159/70
[2017-10-20] MEDS: BUMETANIDE 1 MG TAB PO SCH (18:58)
[2017-10-20 22:00] VITALS: BP 154/80
[2017-10-20] MEDS: INSULIN LANTUS (GLARGINE) 1 /0.01ml (100units/ml) SC SCH (22:00)
[2017-10-20] MEDS: ATORVASTATIN 20 MG TAB PO SCH (22:08)
[2017-10-21] MEDS: ALBUTEROL SULF 2.5 MG/0.5ML(0.5%) NEB SOLN HHN SCH ×5 (02:00→22:17)
[2017-10-21] MEDS: IPRATROPIUM BROM 0.5 MG/2.5ML INH SOL NEB SCH ×5 (02:00→22:17)
[2017-10-21 05:00] VITALS: BP 169/85
[2017-10-21] MEDS: SALINE 0.65 % NASAL SPRAY 45ML BOTTLE EACHNOSTRI SCH ×4 (05:25→21:18)
[2017-10-21] MEDS: ISOSORBIDE DINITRATE 10 MG TAB PO SCH ×3 (05:26→18:31)
[2017-10-21] MEDS: BUMETANIDE 1 MG TAB PO SCH ×2 (05:26→18:31)
[2017-10-21] MEDS: hydrALAZINE HCL 25 MG TAB PO SCH ×3 (05:27→21:17)
[2017-10-21 05:49] LABS: Basophils # (auto) 0 uL; Basophils % (auto) 0.5 % (0.0-2.0); Eosinophils # (auto) 0.2 uL; Eosinophils % (auto) 2.9 % (0.0-7.0); Hematocrit 28.1 % (36.0-46.0); Hemoglobin 9.5 g/dL (12.2-16.2); Lymphocytes # (auto) 0.8 uL; Lymphocytes % (auto) 11.7 % (10.0-50.0); Mean Corpuscular Hemoglobin 32.4 pg (28.0-32.0); Mean Corpuscular Volume 95.4 fL (80.0-100.0); Monocytes # (auto) 0.6 uL; Monocytes % (auto) 9.1 % (0.0-12.0); Neutrophils # (auto) 5.2 uL; Neutrophils % (auto) 75.8 % (37.0-80.0); Platelet Count (auto) 234 10^3/uL (140-450); Red Blood Cells 2.94 10^6/uL (4.0-5.20); Red Cell Distribution Width 14.1 % (11.8-14.3); White Blood Cell 6.8 10^3/uL (4.4-10.8)
[2017-10-21 06:02] LABS: BUN/Creatinine Ratio 11.1; Calcium 8.9 mg/dL (8.5-10.1); Magnesium 2.1 mg/dL (1.6-2.6); Potassium 4.2 mmol/L (3.5-5.1)
[2017-10-21] MEDS: InsuLIN REG 1unit/0.01ml Soln (100units/ml) SC SCH ×4 (06:34→21:17)
[2017-10-21] MEDS: ACCU-CHEK COMFORT CURVE STRIP VI SCH ×4 (06:35→21:17)
[2017-10-21] MEDS ORDERED: BUMETANIDE (0.25 MG/ML) INJ 10ML IV SCH (07:00)
[2017-10-21 09:00] VITALS: BP 159/74
[2017-10-21] MEDS: SERTRALINE HCL 50 MG TAB PO SCH (10:12)
[2017-10-21] MEDS: ENOXAPARIN SOD 30 MG/0.3 ML SYRINGE SC SCH (10:12)
[2017-10-21] MEDS: ASPirin 81 mg TAB PO SCH (10:12)
[2017-10-21] MEDS: PANTOPRAZOLE 40 MG TAB PO SCH (10:12)
[2017-10-21] MEDS ORDERED: CAR3125T PO (12:06)
[2017-10-21] MEDS ORDERED: HYDR25TA35 PO (12:06)
[2017-10-21] MEDS ORDERED: CARVEDILOL 3.125 MG TAB PO ONE (12:15)
[2017-10-21] MEDS ORDERED: INSLANTI SC (12:19)
[2017-10-21 13:00] VITALS: BP 165/83
[2017-10-21 17:13] VITALS: BP 146/73
[2017-10-21] MEDS: CARVEDILOL 3.125 MG TAB PO SCH (21:16)
[2017-10-21] MEDS: INSULIN LANTUS (GLARGINE) 1 /0.01ml (100units/ml) SC SCH (21:17)
[2017-10-21] MEDS: ATORVASTATIN 20 MG TAB PO SCH (21:17)
[2017-10-21 22:06] VITALS: BP 167/84
[2017-10-21 22:26] VITALS: BP 167/84
[2017-10-22] MEDS: ALBUTEROL SULF 2.5 MG/0.5ML(0.5%) NEB SOLN HHN SCH ×6 (02:00→22:56)
[2017-10-22] MEDS: IPRATROPIUM BROM 0.5 MG/2.5ML INH SOL NEB SCH ×6 (02:00→22:56)
[2017-10-22 05:01] VITALS: BP 154/74
[2017-10-22] MEDS: SALINE 0.65 % NASAL SPRAY 45ML BOTTLE EACHNOSTRI SCH ×4 (05:40→22:17)
[2017-10-22] MEDS: BUMETANIDE 1 MG TAB PO SCH ×2 (06:00→18:13)
[2017-10-22] MEDS: ISOSORBIDE DINITRATE 10 MG TAB PO SCH ×3 (06:00→18:14)
[2017-10-22] MEDS: hydrALAZINE HCL 25 MG TAB PO SCH ×3 (06:00→22:17)
[2017-10-22] MEDS: ACCU-CHEK COMFORT CURVE STRIP VI SCH ×4 (06:01→22:18)
[2017-10-22] MEDS: InsuLIN REG 1unit/0.01ml Soln (100units/ml) SC SCH ×4 (06:01→21:58)
[2017-10-22 07:30] VITALS: BP 145/67
[2017-10-22] MEDS: ASPirin 81 mg TAB PO SCH (09:54)
[2017-10-22] MEDS: PANTOPRAZOLE 40 MG TAB PO SCH (09:55)
[2017-10-22] MEDS: SERTRALINE HCL 50 MG TAB PO SCH (09:55)
[2017-10-22] MEDS: CARVEDILOL 3.125 MG TAB PO SCH ×2 (09:55→22:18)
[2017-10-22] MEDS: ENOXAPARIN SOD 30 MG/0.3 ML SYRINGE SC SCH (09:56)
[2017-10-22] MEDS: hydrALAZINE HCL 20 MG/ML VL IV PRN (11:15)
[2017-10-22 11:43] VITALS: BP 158/73
[2017-10-22 16:29] VITALS: BP 156/67
[2017-10-22 21:51] VITALS: BP 144/70
[2017-10-22] MEDS: INSULIN LANTUS (GLARGINE) 1 /0.01ml (100units/ml) SC SCH (22:18)
[2017-10-22] MEDS: ATORVASTATIN 20 MG TAB PO SCH (22:18)
[2017-10-23] MEDS: ALBUTEROL SULF 2.5 MG/0.5ML(0.5%) NEB SOLN HHN SCH ×4 (02:00→13:41)
[2017-10-23] MEDS: IPRATROPIUM BROM 0.5 MG/2.5ML INH SOL NEB SCH ×4 (02:00→13:41)
[2017-10-23 04:35] VITALS: BP 157/71
[2017-10-23] MEDS: SALINE 0.65 % NASAL SPRAY 45ML BOTTLE EACHNOSTRI SCH ×2 (06:03→12:49)
[2017-10-23] MEDS: hydrALAZINE HCL 25 MG TAB PO SCH ×2 (06:03→14:26)
[2017-10-23] MEDS: BUMETANIDE 1 MG TAB PO SCH ×2 (06:04→17:38)
[2017-10-23] MEDS: ISOSORBIDE DINITRATE 10 MG TAB PO SCH ×3 (06:04→17:39)
[2017-10-23] MEDS: ACCU-CHEK COMFORT CURVE STRIP VI SCH ×2 (06:15→12:48)
[2017-10-23] MEDS: InsuLIN REG 1unit/0.01ml Soln (100units/ml) SC SCH ×2 (06:15→11:30)
[2017-10-23 09:00] VITALS: BP 148/66
[2017-10-23] MEDS: ASPirin 81 mg TAB PO SCH (10:15)
[2017-10-23] MEDS: CARVEDILOL 3.125 MG TAB PO SCH (10:17)
[2017-10-23] MEDS: SERTRALINE HCL 50 MG TAB PO SCH (10:17)
[2017-10-23] MEDS: PANTOPRAZOLE 40 MG TAB PO SCH (10:17)
[2017-10-23] MEDS: ENOXAPARIN SOD 30 MG/0.3 ML SYRINGE SC SCH (10:18)
[2017-10-23 13:00] VITALS: BP 153/72
[2017-10-23 16:21] VITALS: BP 148/76
[2017-10-23 17:00] VITALS: BP 154/69
== END 2017-10-23 17:55 | DRG 871 ==
LOC: ER 09:30 → TELE 09:31 → TELE-EAST 10-04 21:40 → ICU WEST 10-13 12:56 → DOU IN ICU 10-15 15:20 → TELE-WESTW 10-17 21:58
PROVIDERS: ADMIT Internal Medicine; ATTEND Internal Medicine
PROC: 5A12012 Performance of Cardiac Output, Single, Manual (ICD-10-PCS; principal; 2017-10-13)
PROC: 5A1945Z Respiratory Ventilation, 24-96 Consecutive Hours (ICD-10-PCS; 2017-10-13)
PROC: 0BH17EZ Insertion of Endotracheal Airway into Trachea, Via Natural or Artificial Opening (ICD-10-PCS; 2017-10-13)
DX: A41.9 Sepsis, unspecified organism (principal); J18.1 Lobar pneumonia, unspecified organism; I21.A1 Myocardial infarction type 2; J96.21 Acute and chronic respiratory failure with hypoxia; N17.0 Acute kidney failure with tubular necrosis; I46.9 Cardiac arrest, cause unspecified; I50.43 Acute on chronic combined systolic (congestive) and diastolic (congestive) heart failure; I13.2 Hypertensive heart and chronic kidney disease with heart failure and with stage 5 chronic kidney disease, or end stage renal disease; I13.0 Hypertensive heart and chronic kidney disease with heart failure and stage 1 through stage 4 chronic kidney disease, or unspecified chronic kidney disease; N18.4 Chronic kidney disease, stage 4 (severe); N39.0 Urinary tract infection, site not specified; E11.21 Type 2 diabetes mellitus with diabetic nephropathy; E11.40 Type 2 diabetes mellitus with diabetic neuropathy, unspecified; B18.2 Chronic viral hepatitis C; D63.8 Anemia in other chronic diseases classified elsewhere; E11.22 Type 2 diabetes mellitus with diabetic chronic kidney disease; E11.59 Type 2 diabetes mellitus with other circulatory complications; E83.39 Other disorders of phosphorus metabolism; E78.5 Hyperlipidemia, unspecified; E87.5 Hyperkalemia; E87.6 Hypokalemia; F32.9 Major depressive disorder, single episode, unspecified; I25.10 Atherosclerotic heart disease of native coronary artery without angina pectoris; I25.5 Ischemic cardiomyopathy; R32 Unspecified urinary incontinence; Z79.4 Long term (current) use of insulin; Z79.82 Long term (current) use of aspirin; Z79.899 Other long term (current) drug therapy; Z80.6 Family history of leukemia; Z82.49 Family history of ischemic heart disease and other diseases of the circulatory system; Z83.3 Family history of diabetes mellitus; Z87.891 Personal history of nicotine dependence; I16.0 Hypertensive urgency; Z23 Encounter for immunization
CPT/HCPCS: 36415; 36600; 71045; 71046; 76775; 80048; 80053; 80061; 80307; 81001; 82306; 82550; 82570; 82805; 82962; 83036; 83540; 83550; 83605; 83735; 83880; 83970; 84100; 84300; 84443; 84484; 84550; 85025; 85379; 85610; 85730; 86141; 86706; 86803; 87040; 87070; 87081; 87086; 87205; 87340; 92950; 93005; 93306; 93926; 94002; 94003; 94640; 96365; 96372; 96375; 97110; 97116; 97163; 97530; C9113; J0330; J1815; J1956; J2001; J2704; J3480

== ENCOUNTER 2020-03-24 01:15 | Inpatient (IN) | payer MEDICAID, MEDICARE, OTHER ==
[~2020-03-24] VITALS: Ht 160 cm; Wt 79.5 kg
[~2020-03-24 01:15] MED LIST: ASPI81CH43 PO; ATOR20TA50 PO; BUME1TAB3 PO; CAR3125T PO; FUR20T; HYDR-4296 PO; INSLANTI SC; INSLISPI SC; ISOS10TA2 PO; PANT40T PO; SERT50TA PO
[2020-03-24] MEDS ORDERED: SODIUM CHLORIDE 0.9% 1,000 ML IV ONE (02:45)
[2020-03-24] MEDS ORDERED: SODIUM CHLORIDE 0.9% 2,000 ML IV ONE (03:00)
[2020-03-24 03:01] LABS: Basophils # (auto) 0 10 ^3/uL (0-0.2); Basophils % (auto) 0.2 % (0.0-2.0); Eosinophils # (auto) 0 10 ^3/uL (0-0.8); Eosinophils % (auto) 0.1 % (0.0-7.0); Hematocrit 34.1 % (36.0-46.0); Hemoglobin 11.5 g/dL (12.2-16.2); Lymphocytes # (auto) 0.8 10 ^3/uL (0.4-5.4); Lymphocytes % (auto) 4.5 % (10.0-50.0); Mean Corpuscular Hemoglobin 32.1 pg (28.0-32.0); Mean Corpuscular Hgb Conc. 33.7 g/dL (32.0-36.0); Mean Corpuscular Volume 95.5 fL (80.0-100.0); Monocytes # (auto) 0.9 10 ^3/uL (0-1.3); Monocytes % (auto) 5.1 % (0.0-12.0); Neutrophils # (auto) 16.2 10 ^3/uL (1.6-8.6); Neutrophils % (auto) 90.1 % (37.0-80.0); Nucleated Red Blood Cells % 0.1 %; Platelet Count (auto) 304 10^3/uL (140-450); Red Blood Cells 3.57 10^6/uL (4.0-5.20); Red Cell Distribution Width 13.2 % (11.8-14.3)
[2020-03-24 03:18] LABS: Albumin 3.3 g/dL (3.4-5.0); Calcium 7.9 mg/dL (8.5-10.1); Magnesium 1.7 mg/dL (1.6-2.6); Potassium 3.6 mmol/L (3.5-5.1)
[2020-03-24 03:22] LABS: BUN/Creatinine Ratio 14.1; Bilirubin, Total 0.3 mg/dL (0.2-1.0); Total Protein 8.6 g/dL (6.4-8.2)
[2020-03-24 03:27] LABS: INR 1.08 (0.9-1.15); Partial Thromboplastin Time 31.3 sec (23.0-31.2)
[2020-03-24] MEDS ORDERED: PIPERACILLIN-TAZOB 3.375GM 100 ML IV ONE (03:45)
[2020-03-24 08:24] LABS: Calcium 7.2 mg/dL (8.5-10.1); Potassium 3.2 mmol/L (3.5-5.1)
[2020-03-24 08:27] LABS: BUN/Creatinine Ratio 15.4
[2020-03-24] MEDS ORDERED: HYDROcodone-ACET 5/325MG TAB PO PRN (08:45)
[2020-03-24] MEDS ORDERED: DEXTROSE (50%) 50ML SYRG IV PRN (08:45)
[2020-03-24] MEDS: SODIUM BICARBONATE 50ML VIAL 50 ML in SOD CHL 0.45% 1,000 ML IV SCH ×2 (08:45→20:30)
[2020-03-24] MEDS ORDERED: NITROGLYCERIN 0.4 MG SL TAB SL PRN (08:45)
[2020-03-24] MEDS ORDERED: MORPHINE SULF INJ 2 MG/ML SYRINGE 1ML IV PRN ×2 (08:45)
[2020-03-24] MEDS: levoFLOXacin 250MG 50 ML IV SCH (08:45)
[2020-03-24] MEDS ORDERED: ACETAMINOPHEN 500 MG TAB PO PRN (08:45)
[2020-03-24 09:38] LABS: Uric Acid 10.9 mg/dL (2.6-6.0)
[2020-03-24 09:40] LABS: Phosphorus 8.3 mg/dL (2.5-4.90)
[2020-03-24] MEDS: ENOXAPARIN SOD 30 MG/0.3 ML SYRINGE SC SCH (10:00)
[2020-03-24] MEDS: PANTOPRAZOLE 40 MG TAB PO SCH (10:00)
[2020-03-24] MEDS ORDERED: cloNIDine HCL 0.1 MG TAB PO PRN (10:15)
[2020-03-24] MEDS ORDERED: ASPirin 81 mg TAB PO ONE (10:15)
[2020-03-24] MEDS ORDERED: METOPROLOL TARTRATE 25 MG TAB PO ONE (10:15)
[2020-03-24 10:46] LABS: Cholesterol 123 mg/dL (< 200)
[2020-03-24 10:50] LABS: HDL Cholesterol 36 mg/dL (40-59); LDL Cholesterol 69 mg/dL (< 100); Triglycerides 165 mg/dL (< 150)
[2020-03-24] MEDS: InsuLIN REG 1unit/0.01ml Soln (100units/ml) SC SCH ×4 (11:30→23:00)
[2020-03-24] MEDS: ACCU-CHEK COMFORT CURVE STRIP VI SCH ×3 (11:50→21:48)
[2020-03-24 19:57] VITALS: BP 162/70
[2020-03-24 20:30] VITALS: BP 162/70
--- NOTE | 2020-03-24 20:30 | NUR ---
Received patient from ER. Patient is alert and oriented x4. Patient reports no SOB or pain. Upon examining her, she has several wounds on her body related to skin moisture. These wounds are located in her left armpit, lower abdominal fold, left and right groin and left and right buttocks. Each wound is macerated and pink. An Optifoam was placed on her buttocks for the time being. Patient is educated on wounds and to shift her body weight every so often to prevent further deterioration. She understands that a wound and a nutrition consult will be made to further examine and care for her wounds. Pt also has a blackened scab on her left forearm.
[2020-03-24] MEDS: METOPROLOL TARTRATE 25 MG TAB PO SCH (21:46)
[2020-03-24 23:30] VITALS: BP 134/67
[2020-03-25] MEDS ORDERED: PNEUMOCOCCAL VACC POLYS 25 MCG/0.5 ML VIAL IM ONE (04:30)
[2020-03-25] MEDS ORDERED: INFLUENZA QUAD 2020-2021 0.5 ML SYRG IM ONE (04:30)
[2020-03-25 05:00] VITALS: BP_SYST 146; BP_SYST 158; BP_DIAS 80; BP_DIAS 88
[2020-03-25] MEDS: ACCU-CHEK COMFORT CURVE STRIP VI SCH ×4 (06:18→22:57)
[2020-03-25 06:24] LABS: Hematocrit 28.2 % (36.0-46.0); Hemoglobin 9.5 g/dL (12.2-16.2); Mean Corpuscular Hemoglobin 32.1 pg (28.0-32.0); Mean Corpuscular Hgb Conc. 33.8 g/dL (32.0-36.0); Mean Corpuscular Volume 95.1 fL (80.0-100.0); Platelet Count (auto) 230 10^3/uL (140-450); Red Blood Cells 2.97 10^6/uL (4.0-5.20); Red Cell Distribution Width 12.9 % (11.8-14.3); White Blood Cell 11.2 10^3/uL (4.4-10.8)
[2020-03-25] MEDS: InsuLIN REG 1unit/0.01ml Soln (100units/ml) SC SCH ×3 (06:28→17:54)
[2020-03-25 06:53] LABS: Band Neutrophils % (manual) 0; Basophils % (manual) 0 (0.0-2.0); Blast Cells 0; Eosinophils % (manual) 0 (0-7); Promyelocytes % 0; Reactive Lymphocytes 0
[2020-03-25 06:57] LABS: Albumin 2.7 g/dL (3.4-5.0); BUN/Creatinine Ratio 15.7; Bilirubin, Total 0.3 mg/dL (0.2-1.0); Calcium 6.9 mg/dL (8.5-10.1); Total Protein 6.8 g/dL (6.4-8.2)
[2020-03-25 07:00] LABS: Potassium 2.9 mmol/L (3.5-5.1)
--- NOTE | 2020-03-25 07:06 | NUR ---
Paged hospitalist for critical level of K 2.9, BUN 145, Crea 9.24, awaiting for call back.
--- NOTE | 2020-03-25 07:30 | NUR ---
Opening Shift Note Report received and assumed care of patient, awake and alert.awaiting for hospitalist to call back (paged by NOC shift RN) for K+ of 2.9, No S/S of distress/SOB or pain. Instructed on POC,scheduled Echocardiogram,call light within reach patient reminded instructed to call for assistance,verbalized understanding, will continue to monitor for changes Q1hr and PRN.
[2020-03-25 07:41] LABS: Lymphocytes % (manual) 10 (10.0-50.0); Metamyelocytes % 1; Monocytes % (manual) 2 (0-12); Myelocytes % 1
[2020-03-25 09:36] VITALS: BP 145/78
[2020-03-25] MEDS: METOPROLOL TARTRATE 25 MG TAB PO SCH ×2 (10:05→22:56)
[2020-03-25] MEDS: PANTOPRAZOLE 40 MG TAB PO SCH (10:05)
[2020-03-25] MEDS: ASPirin 81 mg TAB PO SCH (10:05)
[2020-03-25] MEDS: ENOXAPARIN SOD 30 MG/0.3 ML SYRINGE SC SCH (10:06)
--- NOTE | 2020-03-25 10:39 | NUR ---
PAGED DR. CASSIDY FOR K+2.9,AWAITING FOR CALL BACK
--- NOTE | 2020-03-25 11:18 | NUR ---
WOUND CARE NOTE: WOUND CARE IN TO SEE PATIENT PER WOUND CARE REQUEST. [facility] BEDSIDE NURSE NOTED SKIN INTEGRITY ISSUES UPON ADMISSION. PHOTOGRAPHS TAKEN AT THAT TIME FOR REFERENCE. PATIENT RUBINA SCORE IS 12. PATIENT NOTED TO HAVE MASD WITH SKIN EROSION TO BILATERAL BUTTOCKS. INTERTRIGINOUS RASH TO LEFT ARMPIT, LOWER ABDOMINAL FOLD, AND BILATERAL GROIN FOLDS. PATIENT ALSO NOTED TO HAVE SCABBED OVER SKIN TEAR TO LEFT ELBOW. ZGUARD APPLIED TO BILATERAL BUTTOCKS. ANTIFUNGAL OINTMENT APPLIED TO LOWER ABDOMINAL FOLD AND BILATERAL GROIN FOLDS. LEFT ELBOW CLEANSED WITH NORMAL SALINE, PATTED DRY, THERAHONEY APPLIED AND COVERED WITH OPTIFOAM GENTLE DRESSING. RECOMMEND: FREQUENT Q2HOUR REPOSITIONING CONDITION PERMITS. REDISTRIBUTE PRESSURE UTILIZING PILLOWS AND WEDGES. BID/PRN APPLICATION OF MOISTURE BARRIER CREAM AND ANTIFUNGAL OINTMENT TO AFFECTED AREAS. EOD/PRN DRESSING CHANGE TO LEFT ELBOW. SKIN/WOUND CARE PLAN. CONTINUED MONITORING BY WOUND CARE TEAM. Addendum: 03/25/20 at 1515 by LAURE WHITFIELD RN RN Amended: Links added.
[2020-03-25] MEDS: SODIUM BICARBONATE 50ML VIAL 50 ML in SOD CHL 0.45% 1,000 ML IV SCH (11:59)
--- NOTE | 2020-03-25 12:00 | NUR ---
KAROLINA TENA CALLED AND SPOKE TO PATIENT ,PASSWORD [phone] GIVEN BY PATIENT FOR MALLIKA TO USED
--- NOTE | 2020-03-25 12:10 | NUR ---
KAROLINA TENA CALLED (PASSWORD VERIFIED ) UPDATED WITH PLAN OF CARE AND PATIENT STATUS
[2020-03-25] MEDS ORDERED: POTASSIUM CHL 20 Meq TABLET PO ONE (12:45)
[2020-03-25 13:00] VITALS: BP 129/63
[2020-03-25] MEDS: POTASSIUM CHL 20MEQ/100ML 100 ML IV SCH ×2 (14:04→16:19)
--- NOTE | 2020-03-25 14:15 | NUR ---
Fr#16 Yoo Catheter inserted,aseptic technique observed
--- NOTE | 2020-03-25 14:30 | NUR ---
Urine specimen sent to lab
--- NOTE | 2020-03-25 14:31 | NUR ---
Nutrition Consult/Assessment Notes please see attached link for complete assessment Est energy needs ABW 66 [id number] kcal (23-25 kcal/kg ABW) Est protein needs: 52-66 g (0.8-1.0 g/kg ABW r/t elev RFT wounds) Will reassess prn. Addendum: 03/25/20 at [address] Amended: Links added.
[2020-03-25 15:36] LABS: Urine Bacteria FEW /hpf (None Seen); Urine Blood 2+ /uL (Negative); Urine Specific Gravity 1.008 (1.001-1.035); Urine WBC 163 /hpf (0 - 5); Urine WBC Clumps PRESENT /hpf (None Seen)
[2020-03-25 17:00] VITALS: BP 159/77
[2020-03-25] MEDS: CALCIUM ACETATE 667 MG CAP PO SCH (17:58)
[2020-03-25] MEDS: SODIUM BICARBONATE 50ML VIAL 75 ML in SOD CHL 0.45% 1,000 ML IV SCH (17:58)
--- NOTE | 2020-03-25 19:13 | NUR ---
CALLED AND SPOKE TO DR. JEAN COVERING FR DR. JENNIFER COBURN URINALYSIS RESULT,SEE ORDERS WRITTEN.
--- NOTE | 2020-03-25 19:30 | NUR ---
Opening Shift Note Assumed care of patient, awake and alert. No S/S of distress/SOB or pain. Instructed on POC and to call for assist PRN, will continue to monitor for changes Q1hr and PRN.
[2020-03-25 22:00] VITALS: BP 171/75
[2020-03-25] MEDS: cefTRIAXone 1GM/50ML D5W 50 ML IV SCH (22:57)
[2020-03-26] MEDS: SODIUM BICARBONATE 50ML VIAL 75 ML in SOD CHL 0.45% 1,000 ML IV SCH ×3 (03:15→21:15)
[2020-03-26 05:18] VITALS: BP 176/77
[2020-03-26 06:10] LABS: Hematocrit 27.7 % (36.0-46.0); Hemoglobin 9.2 g/dL (12.2-16.2); Mean Corpuscular Hemoglobin 31.4 pg (28.0-32.0); Mean Corpuscular Hgb Conc. 33.2 g/dL (32.0-36.0); Mean Corpuscular Volume 94.7 fL (80.0-100.0); Platelet Count (auto) 229 10^3/uL (140-450); Red Blood Cells 2.93 10^6/uL (4.0-5.20); Red Cell Distribution Width 12.5 % (11.8-14.3); White Blood Cell 11.1 10^3/uL (4.4-10.8)
[2020-03-26 06:25] LABS: INR 1.04 (0.9-1.15)
[2020-03-26 06:28] LABS: % Iron Saturation 33.1 % (15-50); Band Neutrophils % (manual) 0; Basophils % (manual) 0 (0.0-2.0); Blast Cells 0; Eosinophils % (manual) 0 (0-7); Metamyelocytes % 0; Myelocytes % 0; Promyelocytes % 0; Reactive Lymphocytes 0
[2020-03-26 06:32] LABS: Calcium 6.6 mg/dL (8.5-10.1); Potassium 3.3 mmol/L (3.5-5.1)
[2020-03-26 06:35] LABS: BUN/Creatinine Ratio 16.3
[2020-03-26 06:53] LABS: Lymphocytes % (manual) 13 (10.0-50.0); Monocytes % (manual) 3 (0-12)
--- NOTE | 2020-03-26 06:56 | NUR ---
Dr. Baez paged for EW=072/77;HR=62; BUN-143; K=3.3. MD made aware patient NPO at the moment and patient is a dialysis patient. Will give report to oncoming RN.
[2020-03-26] MEDS: InsuLIN REG 1unit/0.01ml Soln (100units/ml) SC SCH ×4 (07:00→22:00)
--- NOTE | 2020-03-26 07:05 | NUR ---
Call received from Dr. Reyes, updated with patient's status. Order received and noted for antihypertensive IV as needed. No potassium replacement ordered at this time, creatinine lower than yesterday. No other order given. Report will be given to oncoming RN.
[2020-03-26] MEDS: ACCU-CHEK COMFORT CURVE STRIP VI SCH ×4 (07:10→22:00)
[2020-03-26] MEDS ORDERED: POTASSIUM CHL 20MEQ/100ML 100 ML IV ONE (07:15)
[2020-03-26] MEDS ORDERED: hydrALAZINE HCL 20 MG/ML VL IV PRN (07:15)
[2020-03-26] MEDS ORDERED: LOSARTAN POTASSIUM 50 MG TAB PO ONE (07:15)
[2020-03-26] MEDS ORDERED: FUROSEMIDE 20 MG/2 ML VIAL IV ONE (07:15)
--- NOTE | 2020-03-26 07:30 | NUR ---
Opening Shift Note Report received and assumed care of patient, asleep,arousable and alert. No S/S of distress/SOB or pain.Instructed to keep NPO for procedure, Instructed on POC ,call light within reach patient reminded instructed to call for assistance,verbalized understanding, will continue to monitor for changes Q1hr and PRN.
[2020-03-26] MEDS: CALCIUM ACETATE 667 MG CAP PO SCH ×3 (08:00→18:12)
[2020-03-26 09:00] VITALS: BP 139/59
--- NOTE | 2020-03-26 11:20 | NUR ---
MD VISIT DR. RODRIGES HERE TO SEE AND EXAMINED PATIENT, RECEIVED ORDER TO CANCELL IR CONSULT FOR TUNNELLED CATHETER,RESUME DIET,AND REPEAT CMP AT 1400 AND CALL RESULT
--- NOTE | 2020-03-26 11:25 | NUR ---
PATSY RESIDENTIAL WORKER RN CALLED TO BRING PATIENT DOWN FOR PROCEDURE,INFORMED THAT I JUST RECEIVED ORDER FROM DR. ROWAN TO CANCEL IR CONSULTATION FOR TUNNELLED CATH INSERTION.
[2020-03-26] MEDS: cefTRIAXone 1GM/50ML D5W 50 ML IV SCH (11:55)
[2020-03-26] MEDS: levoFLOXacin 250MG 50 ML IV SCH (11:56)
[2020-03-26] MEDS: PANTOPRAZOLE 40 MG TAB PO SCH (11:56)
[2020-03-26] MEDS: ENOXAPARIN SOD 30 MG/0.3 ML SYRINGE SC SCH (11:56)
[2020-03-26] MEDS: ASPirin 81 mg TAB PO SCH (11:56)
[2020-03-26] MEDS: METOPROLOL TARTRATE 25 MG TAB PO SCH ×2 (11:57→22:00)
--- NOTE | 2020-03-26 12:00 | NUR ---
MD VISIT DR. RODRIGUEZ HERE TO SEE AND EXAMINED PATIENT RECEIVED ORDER FOR P.T. EVALUATION AND TREAT
[2020-03-26] MEDS: amLODIPine BESYLATE 5 MG TAB PO SCH (12:55)
[2020-03-26 13:00] VITALS: BP 142/65
--- NOTE | 2020-03-26 16:57 | NUR ---
CALLED LAB,SPOKE TO ALISSA REGARDING CMP THAT WAS ORDERED FOR 1400 AND STILL NOT OBTAIN,STATED COMMUNITY SERVICES OFFICER STILL MAKING ROUNDS DUE TO BULLET IS NOT WORKING,INFORMED NEEDING RESULT TUTU.
[2020-03-26 17:00] VITALS: BP 140/63
[2020-03-26 17:27] LABS: Albumin 2.4 g/dL (3.4-5.0); BUN/Creatinine Ratio 14.9; Calcium 6.3 mg/dL (8.5-10.1); Potassium 3.1 mmol/L (3.5-5.1)
[2020-03-26 17:30] LABS: Bilirubin, Total 0.2 mg/dL (0.2-1.0); Total Protein 6.6 g/dL (6.4-8.2)
--- NOTE | 2020-03-26 17:35 | NUR ---
RECEIVED CALL FROM LAB CRITICAL RESULT FOR BUN.
--- NOTE | 2020-03-26 17:36 | NUR ---
CALLED DR. RODRIGES CALLED,INFORMED OF CMP RESULT,TOTAL OUTPUT OF 1,250,RECEIVED ORDERS,SEE ORDERS WRITTEN
--- NOTE | 2020-03-26 18:00 | NUR ---
INFORMED PATIENT OF PLAN OF CARE,NPO POST MIDNIGHT AND TUNNELLED CATHETER INSERTION IN A.M.,VERBALIZED UNDERSTANDING.
[2020-03-26 22:00] VITALS: BP 140/65
[2020-03-27 05:00] VITALS: BP 144/74
[2020-03-27] MEDS: SODIUM BICARBONATE 50ML VIAL 75 ML in SOD CHL 0.45% 1,000 ML IV SCH (05:13)
[2020-03-27 05:59] LABS: Hematocrit 27.5 % (36.0-46.0); Hemoglobin 9.3 g/dL (12.2-16.2); Mean Corpuscular Hemoglobin 31.5 pg (28.0-32.0); Mean Corpuscular Hgb Conc. 33.7 g/dL (32.0-36.0); Mean Corpuscular Volume 93.5 fL (80.0-100.0); Platelet Count (auto) 219 10^3/uL (140-450); Red Blood Cells 2.94 10^6/uL (4.0-5.20); Red Cell Distribution Width 12.7 % (11.8-14.3); White Blood Cell 10.9 10^3/uL (4.4-10.8)
[2020-03-27 06:22] LABS: Calcium 6.5 mg/dL (8.5-10.1)
[2020-03-27 06:28] LABS: Basophils % (manual) 0 (0.0-2.0); Blast Cells 0; Myelocytes % 0; Promyelocytes % 0; Reactive Lymphocytes 0
[2020-03-27 06:30] LABS: Potassium 2.8 mmol/L (3.5-5.1)
--- NOTE | 2020-03-27 06:35 | NUR ---
MD Guerin notified and orders received for morning potassium of 2.8
[2020-03-27] MEDS: ACCU-CHEK COMFORT CURVE STRIP VI SCH ×4 (06:42→22:21)
[2020-03-27] MEDS: InsuLIN REG 1unit/0.01ml Soln (100units/ml) SC SCH ×4 (06:42→22:00)
[2020-03-27] MEDS ORDERED: POTASSIUM CHL 20 Meq TABLET PO ONE (06:45)
[2020-03-27] MEDS: CALCIUM ACETATE 667 MG CAP PO SCH ×3 (08:00→18:00)
[2020-03-27 08:24] LABS: Band Neutrophils % (manual) 3; Eosinophils % (manual) 1 (0-7); Lymphocytes % (manual) 6 (10.0-50.0); Metamyelocytes % 2; Monocytes % (manual) 4 (0-12)
[2020-03-27] MEDS: cefTRIAXone 1GM/50ML D5W 50 ML IV SCH (08:46)
[2020-03-27] MEDS: ONDANSETRON HCL 4 MG/2 ML VIAL IV PRN ×2 (08:46→14:22)
[2020-03-27 09:00] VITALS: BP 151/70
[2020-03-27] MEDS: ENOXAPARIN SOD 30 MG/0.3 ML SYRINGE SC SCH (09:29)
[2020-03-27] MEDS: ASPirin 81 mg TAB PO SCH (09:30)
[2020-03-27] MEDS ORDERED: POTASSIUM CHL 20MEQ/100ML 100 ML IV ONE (10:00)
--- NOTE | 2020-03-27 11:24 | NUR ---
Patient taken down to laboratory clerk for procedure. No S/S of distress noted.
[2020-03-27 11:31] LABS: INR 1.03 (0.9-1.15); Partial Thromboplastin Time 29.6 sec (23.0-31.2)
[2020-03-27] MEDS: PANTOPRAZOLE 40 MG TAB PO SCH (12:00)
[2020-03-27] MEDS ORDERED: fentaNYL CITRATE 100 MCG/2 ML VL ONE (12:07)
[2020-03-27] MEDS ORDERED: LIDOCAINE 2%HCL (LOCAL ANESTH.) INJ 20ML MDV ONE (12:07)
[2020-03-27] MEDS ORDERED: HEPARIN SODIUM (PORCINE) 5000 UNITS/ML 1ML VIAL ONE (12:07)
[2020-03-27] MEDS ORDERED: MIDAZOLAM HCL 1MG/1ML-2 ML VIAL ONE (12:07)
--- NOTE | 2020-03-27 12:53 | NUR ---
Hold PT, pt is having procedure today.
[2020-03-27 13:00] VITALS: BP 159/66
[2020-03-27] MEDS ORDERED: SODIUM CHL 0.9% 1000 ML BAG XX ONE (13:15)
--- NOTE | 2020-03-27 14:06 | NUR ---
Patient back from packing house laborer for placement of dialysis catheter on Right upper chest. V/S stable 159/66 bp 66hr 16rr 96% on RA,temp 97.8 No s/s of distress noted. Dialysis nurse informed patient is back from procedure.
[2020-03-27] MEDS: amLODIPine BESYLATE 5 MG TAB PO SCH (15:41)
[2020-03-27] MEDS: METOPROLOL TARTRATE 25 MG TAB PO SCH ×2 (15:41→22:21)
[2020-03-27 16:59] LABS: Magnesium 1.5 mg/dL (1.6-2.6); Potassium 3.1 mmol/L (3.5-5.1)
[2020-03-27 17:00] VITALS: BP 107/57
[2020-03-27] MEDS ORDERED: POTASSIUM CHLORIDE 40 MEQ, LIDOCAINE 1% (LOCAL ANESTH.) 4 ML in SODIUM CHL 0.9% 250 ML IV ONE (20:00)
[2020-03-27] MEDS: MAGNESIUM SULFATE 1GM/100ML 100 ML IV SCH ×2 (20:30→22:09)
[2020-03-27] MEDS ORDERED: EPOETIN ALFA 10,000 UNIT/1 ML VIAL SC ONE (21:00)
[2020-03-27 21:30] VITALS: BP 156/57
--- NOTE | 2020-03-28 | NUR ---
DRESSING CHANGE OF LEFT FOREARM DONE AT THIS TIME. ANTIFUNGAL AND BARRIER CREAM APPLIED TO APPROPRIATE AREAS.
[2020-03-28] MEDS: ONDANSETRON HCL 4 MG/2 ML VIAL IV PRN ×2 (01:14→08:11)
--- NOTE | 2020-03-28 01:31 | NUR ---
ASKED PATIENT IF SHE WAS COMFORTABLE , IF SHE NEEDED ASSISTANCE TO TURN. TO WHICH SHE REPLIED "NO IM ALRIGHT." CHACORTA JACOBO MADE AWARE.
[2020-03-28 05:00] VITALS: BP 159/72
[2020-03-28 06:31] LABS: Albumin 2.5 g/dL (3.4-5.0); Potassium 3.8 mmol/L (3.5-5.1)
[2020-03-28 06:33] LABS: BUN/Creatinine Ratio 10.5; Bilirubin, Total 0.2 mg/dL (0.2-1.0); Total Protein 6.4 g/dL (6.4-8.2)
[2020-03-28] MEDS: InsuLIN REG 1unit/0.01ml Soln (100units/ml) SC SCH ×4 (06:54→22:40)
[2020-03-28] MEDS: ACCU-CHEK COMFORT CURVE STRIP VI SCH ×4 (06:54→22:24)
[2020-03-28] MEDS: CALCIUM ACETATE 667 MG CAP PO SCH ×3 (08:12→17:57)
[2020-03-28 08:58] VITALS: BP 160/80
[2020-03-28] MEDS ORDERED: CALC667C5 PO (09:32)
[2020-03-28] MEDS ORDERED: AML5T PO (09:32)
[2020-03-28] MEDS ORDERED: CAR3125T PO (09:32)
[2020-03-28] MEDS: cefTRIAXone 1GM/50ML D5W 50 ML IV SCH (10:05)
[2020-03-28] MEDS: amLODIPine BESYLATE 5 MG TAB PO SCH (10:06)
[2020-03-28] MEDS: PANTOPRAZOLE 40 MG TAB PO SCH (10:07)
[2020-03-28] MEDS: ASPirin 81 mg TAB PO SCH (10:07)
[2020-03-28] MEDS: METOPROLOL TARTRATE 25 MG TAB PO SCH ×2 (10:08→22:20)
[2020-03-28] MEDS: ENOXAPARIN SOD 30 MG/0.3 ML SYRINGE SC SCH (10:09)
[2020-03-28 10:29] LABS: Hepatitis A Ab IgM Negative; Hepatitis B Core IgM Negative; Hepatitis B Surface Antigen Negative (Negative)
[2020-03-28 10:31] LABS: Hepatitis C Antibody Positive (Negative)
[2020-03-28] MEDS ORDERED: SODIUM CHL 0.9% 1000 ML BAG XX ONE (12:45)
[2020-03-28 13:00] VITALS: BP 186/81
[2020-03-28 13:01] LABS: Hematocrit 26.3 % (36.0-46.0); Hemoglobin 9.2 g/dL (12.2-16.2); Mean Corpuscular Hemoglobin 32.9 pg (28.0-32.0); Mean Corpuscular Hgb Conc. 35.1 g/dL (32.0-36.0); Mean Corpuscular Volume 93.7 fL (80.0-100.0); Platelet Count (auto) 200 10^3/uL (140-450); Red Blood Cells 2.81 10^6/uL (4.0-5.20); Red Cell Distribution Width 12.8 % (11.8-14.3); White Blood Cell 10.7 10^3/uL (4.4-10.8)
[2020-03-28 13:03] LABS: Band Neutrophils % (manual) 0; Basophils % (manual) 0 (0.0-2.0); Blast Cells 0; Eosinophils % (manual) 0 (0-7); Metamyelocytes % 0; Promyelocytes % 0; Reactive Lymphocytes 0
[2020-03-28 13:25] LABS: Lymphocytes % (manual) 8 (10.0-50.0); Monocytes % (manual) 4 (0-12); Myelocytes % 2
--- NOTE | 2020-03-28 13:30 | NUR ---
DOCTOR RODRIGUEZ AND DOCTOR PINTO ROUNDING. INFORMED BOTH MD PATIENT WAS FEELING WEAK AND NAUSEA. NEW ORDERS RECEIVED FROM DOCTOR RODRIGUEZ,SEE EMR FOR ORDERS.
--- NOTE | 2020-03-28 14:04 | NUR ---
Assessment Patient is a 65-year-old female who is alert and oriented. Prior to admission patient lived home alone and functioned independently. Patient informed me she can care for her own ADLs. Per patient she has a walker and cane for home use. Per patient she receives 1300 from [facility]. Advised patient there is a social service consult SNF placement and dialysis. Advised patient clinical information will be faxed to contracted facilities with Health plan for SNF and [facility] dialysis for chair time. Informed patient she has the right to participate in all discharge planning. Patient verbalized understanding and agreed to discharge plan. Clinical information was faxed to [facility], [facility] and [facility]. Pending SNF acceptance and chair time. Faxed clinical information to [facility]. Addendum: 03/28/20 at 1406 by TERRANCE ALFORD Amended: Links added.
[2020-03-28] MEDS: METOCLOPRAMIDE HCL 10 MG TAB PO SCH ×2 (14:33→22:20)
--- NOTE | 2020-03-28 14:50 | NUR ---
The patient is a 65-year-old female, patient is alert and oriented. Patient cognitive abilities are intact. Patient stated that she struggles to do all ADLs independently, patient is receptive on home healthcare and physical therapy. Patient is a new dialysis patient. Patient stated that she lives alone, patient stated prior to admission to [facility] she uses a walker. Patient stated that she receives social security as income. Patient stated that she will return home post discharge. Patient stated that she does not have transportation for discharge. Patient is receptive on receiving information on Advance Directive and POA forms. Patient stated that her friend Jocelyn is her support system. Discharge planning: SW will request for CM to place patient to SNF for dialysis treatment and physical therapy. SW will provide patient information on Advance Directive and POA forms Addendum: 03/28/20 at 1451 by YUMIKO GONZALES Amended: Links added. Addendum: 03/28/20 at 1515 by YUMIKO GONZALES The patient is a 65-year-old female, patient is alert and oriented. Patient cognitive abilities are intact. Patient stated that she struggles to do all ADLs independently. Patient stated that she lives alone, patient stated prior to admission to [facility] she uses a walker. Patient stated that she receives social security as income. Patient is receptive to SNF for rehabilitation and dialysis treatment. Patient is a new dialysis patient. Patient stated that her friend Jocelyn is her support system. Discharge planning: Patient has placement orders for SNF for rehabilitation and new dialysis treatment.
--- NOTE | 2020-03-28 15:23 | NUR ---
CODE ASSIST 1435 WENT INTO PATIENTS ROOM TO PASS MEDICATION, PATIENT WAS GET DIALYSIS WITH VOCATIONAL EXAMINER LOGAN AT BEDSIDE.RN WAS ASSISTING PATIENT WITH TRAY TABLE AND PATIENT BECAME UNRESPONSIVE. TRIED TAPPING PATIENTS SHOULDER NO RESPONSE, NO RESPIRATIONS NOTED B/P ON DIALYSIS WAS 93/45 PULSE PRESENT. 1441 CODE ASSIST CALLED STERNAL RUB PERFORM PATIENT RESPIRATIONS NOTICED PATIENT STILL UNRESPONSIVE, SUPPLEMENTAL OXYGEN PROVIDE AT 3LNC, CONTINUE TO STERNAL RUB PATIENT RESPONSIVE AND ALERT ASKING WHAT HAPPENED. B/P 126/82 HR 55 RESPIRATION 15, O2 SATURATIONS 97% ACCUCHECK 92,. EKG PERFORMED AND READ MY KASANDRA HEDGE FUND TRADER. DOCTOR JENNIFER PAGED AWAITING CALL BACK. WILL CONTINUE TO MONITOR.
--- NOTE | 2020-03-28 15:30 | NUR ---
DIALYSIS TODAY DIALSIS NURSE TOOK OFF 3.0 LITERS
--- NOTE | 2020-03-28 15:44 | NUR ---
D/C Planning Patient has been accepted to [facility] to room 2 MD, Dr. Golden. Chair time is still pending.
--- NOTE | 2020-03-28 15:52 | NUR ---
RECEIVED CALL BACK FROM DOCTOR RODRIGUEZ INFORMED OF CODE ASSIST. INFORMED THAT KASANDRA CANDELARIA RECOMMENDED PATIENT GO FOR HEART CATH TOMORROW. PER DOCTOR JENNIFER HOLD D/C TIL TOMOROW AFTER HEART CATH AND CLEARED BY CARDIOLOGY.
[2020-03-28 17:00] VITALS: BP 139/72
--- NOTE | 2020-03-28 18:00 | NUR ---
Hays catheter dc'd Order to discontinue hays catheter. Hays dc'd with clean technique following deflation of balloon. Patient tolerated well with no complaints of pain. Continue care.
--- NOTE | 2020-03-28 19:30 | NUR ---
RECEIVED PATIENT FROM DAY SHIFT RN. PATIENT RESTING IN BED. NO S/S OF DISTRESS NOTED. DENIED PAIN FOR NOW. REINFORCED NPO AFTER MIDNIGHT FOR PROCEDURE TOMORROW. PATIENT VERBALIZED UNDERSTANDING. POC INSTRUCTED AND ENCOURAGED PATIENT TO CALL FOR KEG FILLER IF NEEDED. BED IN LOWEST LOCKED POSITION WITH SIDE RAILS UP X 2. CALL JOINER WITHIN REACH. ALARM ON. CONTINUE TO MONITOR FOR CHANGES Q1H AND PRN.
[2020-03-28] MEDS ORDERED: EPOETIN ALFA 10,000 UNIT/1 ML VIAL SC ONE (21:00)
--- NOTE | 2020-03-28 21:07 | NUR ---
PATIENT C/O FEELING SICK, DENIED PAIN FOR NOW. VITALS, BP 129/50, HR 62, RR 20, TEMP 98.6, O2 SAT 90% ON RA. PUT PATIENT ON OXYGEN 2L/NC, PATIENT STATED SHE'S USING CPAP DURING THE NIGHT AT HOME, WILL CALL MD FOR IT. CONTINUE TO MONITOR
--- NOTE | 2020-03-28 21:11 | NUR ---
Called/paged Dr. RODRIGUEZ called re: PATIENT FEELING SICK AND WOULD LIKE TO HAVE CPAP AT NIGHT. Waiting for call back. Continue care.
--- NOTE | 2020-03-28 21:31 | NUR ---
returned call Dr. CABALLERO returned call, updated on patient status and reason for call, orders received. CONTINUE TO MONITOR AND CPAP OKAY PATIENT'S HOME SITTING. Continue care.
[2020-03-28 21:58] VITALS: BP 139/72
[2020-03-28 22:00] VITALS: BP 129/50
--- NOTE | 2020-03-28 22:40 | NUR ---
ACCU-CHECK, BS 156. INSULIN GIVEN ORDERED. CONTINUE TO MONITOR.
--- NOTE | 2020-03-28 23:07 | NUR ---
RT AT BEDSIDE FOR CPAP
--- NOTE | 2020-03-28 23:44 | NUR ---
PATIENT C/O "CAN'T BREATH" AFTER CPAP APPLIED, O2 SAT 100% WITH CPAP, RR 18. CALLED RT, INSTRUCTED TO TAKE OFF CPAP AND PUT PATIENT BACK TO OXYGEN 2L/NC. AND KEEP PATIENT ON CONTINUOUS PULSE OXIMETER. PATIENT STATED BETTER AFTER BACK TO 2L/NC. O2 SAT 98%. CONTINUE TO MONITOR.
--- NOTE | 2020-03-29 00:40 | NUR ---
PATIENT NPO FROM NOW. WATER AND FOOD REMOVED FROM BEDSIDE. CONTINUE TO MONITOR.
--- NOTE | 2020-03-29 03:41 | NUR ---
PATIENT SLEEPING WITH 2L/NC, NO S/S OF DISTRESS NOTED O2 SAT 97%. CONTINUE TO MONITOR.
[2020-03-29 05:00] VITALS: BP 139/66
--- NOTE | 2020-03-29 05:42 | NUR ---
TOTAL BED LINEN AND PATIENT GOWN CHANGED BY JELANI HORTON. PATIENT TOLERATED WELL. CONTINUE TO MONITOR.
[2020-03-29 06:28] LABS: Hematocrit 28.5 % (36.0-46.0); Hemoglobin 9.8 g/dL (12.2-16.2); Mean Corpuscular Hemoglobin 32.6 pg (28.0-32.0); Mean Corpuscular Hgb Conc. 34.3 g/dL (32.0-36.0); Platelet Count (auto) 194 10^3/uL (140-450); Red Cell Distribution Width 13.1 % (11.8-14.3); White Blood Cell 11.3 10^3/uL (4.4-10.8)
[2020-03-29 06:39] LABS: INR 1.03 (0.9-1.15); Partial Thromboplastin Time 27.8 sec (23.0-31.2)
[2020-03-29] MEDS: METOCLOPRAMIDE HCL 10 MG TAB PO SCH ×3 (06:39→21:53)
[2020-03-29] MEDS: InsuLIN REG 1unit/0.01ml Soln (100units/ml) SC SCH ×4 (06:39→21:52)
[2020-03-29] MEDS: ACCU-CHEK COMFORT CURVE STRIP VI SCH ×4 (06:39→21:53)
--- NOTE | 2020-03-29 06:41 | NUR ---
ACCU-CHECK, BS 89. NO COVERAGE. CONTINUE TO MONITOR.
[2020-03-29 06:48] LABS: Potassium 4.1 mmol/L (3.5-5.1)
[2020-03-29 06:50] LABS: BUN/Creatinine Ratio 7.3; Calcium 7.6 mg/dL (8.5-10.1)
--- NOTE | 2020-03-29 07:12 | NUR ---
Respiratory note: PT IS AWAKE, AND ALERT. NO RESPIRATORY DISTRESS NOTED. SPO2 97% ON 2L NC, HR 57, RR 16, BS CLEAR/DIMINISHED BILATERALLY. CPAP AT BEDSIDE. HOWEVER PT STATED SHE DIDN'T WEAR IT MUCH. WILL CONTINUE TO MONITOR PT.
[2020-03-29 07:24] LABS: Band Neutrophils % (manual) 0; Basophils % (manual) 0 (0.0-2.0); Blast Cells 0; Eosinophils % (manual) 0 (0-7); Promyelocytes % 0; Reactive Lymphocytes 0
--- NOTE | 2020-03-29 07:30 | NUR ---
Opening Shift Note Assumed patient care from NOC RN. Patient currently sitting up in bed, AOx4. Patient had a small bowel movement/smear, brown and soft. Patient cleaned and partial linen change completed. No signs of distress at this time, respirations even and unlabored; continuous pulse ox at bedside and reading at 98%. Patient requested assistance with combing hair-patient assisted and will attempt to retrieve a hair tie per patient request. Patient is currently NPO for left heart cath today, patient is aware of procedure and verbalized understanding of eduction. Will continue to monitor q 1hr and PRN.
[2020-03-29] MEDS: CALCIUM ACETATE 667 MG CAP PO SCH ×3 (08:00→18:00)
[2020-03-29 08:03] LABS: Lymphocytes % (manual) 12 (10.0-50.0); Metamyelocytes % 1; Monocytes % (manual) 12 (0-12); Myelocytes % 3
[2020-03-29] MEDS: ASPirin 81 mg TAB PO SCH (08:49)
[2020-03-29] MEDS: cefTRIAXone 1GM/50ML D5W 50 ML IV SCH (08:49)
[2020-03-29] MEDS: METOPROLOL TARTRATE 25 MG TAB PO SCH ×2 (08:50→21:53)
[2020-03-29] MEDS: amLODIPine BESYLATE 5 MG TAB PO SCH (08:51)
[2020-03-29] MEDS: PANTOPRAZOLE 40 MG TAB PO SCH (08:51)
[2020-03-29] MEDS: ENOXAPARIN SOD 30 MG/0.3 ML SYRINGE SC SCH (08:51)
[2020-03-29 09:00] VITALS: BP 156/65
--- NOTE | 2020-03-29 09:30 | NUR ---
Up with PT Patient ambulated to restroom and back to bed with physical therapist, Jessica. Full linen change done.
--- NOTE | 2020-03-29 10:00 | NUR ---
Partial bath/wound care Patient cleaned with mild soap and water per wound care instructions. Applied z guard to buttocks, positioned on left side with pillow- left open to air. Anti-fungal ointment applied to abdominal folds and axilla; site continues to be pink with moisture-patient cleaned and dried.
--- NOTE | 2020-03-29 11:40 | NUR ---
Posting Specialist Patient taken to radiographer cardiac catheterization via bed. No signs of distress at this time. Respirations even and unlabored. Report given to radiographer cardiac catheterization RNKarina-made aware of patient status and code assist during dialysis on 03/28.
[2020-03-29 13:00] VITALS: BP 124/69
[2020-03-29] MEDS ORDERED: HEPARIN SODIUM (PORCINE) 5000 UNITS/ML 1ML VIAL ONE (14:09)
[2020-03-29] MEDS ORDERED: ANGIOMAX 250 MG VIAL IV ONE (14:09)
[2020-03-29] MEDS ORDERED: LIDOCAINE 2%HCL (LOCAL ANESTH.) INJ 20ML MDV ONE (14:10)
[2020-03-29] MEDS ORDERED: IODIXANOL 320MG/ML 100ML BTL IV ONE (14:10)
[2020-03-29] MEDS ORDERED: SODIUM CHL 0.9% 0 ML ONE (14:10)
[2020-03-29] MEDS ORDERED: VERAPAMIL 2.5MG/ML INJ 2ML VIAL IV ONE (14:10)
[2020-03-29] MEDS ORDERED: fentaNYL CITRATE 100 MCG/2 ML VL ONE (14:10)
[2020-03-29] MEDS ORDERED: MIDAZOLAM HCL 1MG/1ML-2 ML VIAL ONE (14:10)
--- NOTE | 2020-03-29 14:26 | NUR ---
Nutrition Followup Notes Pt wt is 84.8 Pt was awake when rounded this morning. Pt is currently NPO. Prior to pt NPO status, pt was with a CCHO 60g diet with a poor appetite aeb 25% PO intake x3 meals per RN doc. Est energy needs ABW 66 [id number] kcal (23-25 kcal/kg ABW) Est protein needs: 52-66 g (0.8-1.0 g/kg ABW r/t elev RFT wounds) Will reassess prn. LABS: BUN 26 H, Creat 3.57 H, Ca 7.6 L, Alb 2.5 L GI: Pt is with incontinence per RN doc. BS: 14 mod risk. Refer to wound assessment report for full details. PES: Altered nutrition related lab values r.t current chronic medical condition aeb elev RFT hyperglycemia, mod hypoalb Decreased nutrient needs r/t adiposity aeb pt`s high BMI of 31.8 kgm2 Comments Will continue to monitor PO status, skin status, pertinent labs and weight trends. Will f/u in 2-3 days 1) Consider MVI/C bid 2) Refer to CDE on DC 3) Consider renal specific 60 gm protein 2 gm Na along with current diet 4) Continue current plan of care
--- NOTE | 2020-03-29 14:42 | NUR ---
[facility] Received call from [facility]. Per Rashaad, attempt to reach patient to discuss dialysis chair time. Informed Rashaad that patient is still in director of cardiac cath lab for left heart cath-samantha Sue, Claim Adjuster RN, patient was recently taken in for procedure. Rashaad is aware. Dr. Holland also aware. Addendum: 03/30/20 at 0730 by VILMA MCCLAIN RN RN Correction: Myra at [facility].
--- NOTE | 2020-03-29 15:53 | NUR ---
D/C planning Per Myra with [facility] dialysis or patient has a 20% co-pay and needs to explain to patient before providing a Chair Time. Informed Myra per CHACORTA Fields patient is at propagator laborer. Informed CHACORTA Fields [facility] intake does not open on the weekends and patient will received a chair time on Wednesday when intake explain to patient financial responsibility. [facility] has been informed. Will follow up on Wednesday.
--- NOTE | 2020-03-29 16:00 | NUR ---
Patient Returned Patient returned to unit from Snack Bar Attendant. Patient shows no signs of distress at this time; respirations even and unlabored. Patient on 3L nasal cannula, continuous pulse oximeter reapplied. VS are stable at this time. Incision site at right wrist, vasc band on. Patient pulses palpable with hands warm to touch. Cap refill <3seconds, denies numbness or tingling at this time. Will continue to monitor q1hr and PRN. Safety precautions in place, call light within reach.
--- NOTE | 2020-03-29 16:11 | NUR ---
CHRISTIAN Called Spoke with Laurita regarding patient discharge status and pending dialysis chair time. Per Rashaad Shay at [facility] spoke with Dr. Valenzuela regarding discharge status; patient will be discharged Wednesday. Addendum: 03/30/20 at 0729 by VILMA MCCLAIN RN RN Correction: Radha at [facility]
[2020-03-29 17:00] VITALS: BP 148/68
--- NOTE | 2020-03-29 17:35 | NUR ---
Patient Rounds Removed 2cc air from [facility]. Cap Refill is brisk and <3seconds, pulses palpable. Denies numbness or tingling at this time. Site is warm to touch. Assessed blood glucose, glucometer read 64. Patient is AOx4 and asymptomatic. Provided with apple juice and jello. Will reassess blood glucose levels. Addendum: 03/29/20 at 1748 by VILMA MCCLAIN RN RN Repositioned to right right side at this time.
--- NOTE | 2020-03-29 18:48 | NUR ---
Vasc Band Removed total 10cc from Vasc band. Patient denies tingling or numbness in hand. Pulses palpable, capillary refill <3seconds, fingers are warm to touch.
--- NOTE | 2020-03-29 19:27 | NUR ---
Closing Shift Endorsed care to [facility] Esme WHATLEY. Vasc band removed without incident. Dressing clean, dry and intact. Patient tolerated well. Pulses palpable and hand is warm to touch. Patient educted to maintain proper alignment and avoid bending, patient verbalized understanding. Cap refill is brisk <3seconds.
--- NOTE | 2020-03-29 19:30 | NUR ---
Opening Shift Note Assumed care of patient, awake and alert. No S/S of distress/SOB or pain. Instructed on POC and to call for assist PRN, will continue to monitor for changes Q1hr and PRN. Patient on fall precautions with continous O2 monitoring. Bed at lowest setting and call light within reach.
[2020-03-29 20:00] VITALS: BP 134/64
[2020-03-29 21:00] VITALS: BP 134/64
--- NOTE | 2020-03-29 22:35 | NUR ---
PT REFUSED TO WEAR CPAP. NO SOB NOTED.
[2020-03-30 05:00] VITALS: BP 136/77
[2020-03-30] MEDS: METOCLOPRAMIDE HCL 10 MG TAB PO SCH ×3 (06:00→21:48)
[2020-03-30] MEDS: InsuLIN REG 1unit/0.01ml Soln (100units/ml) SC SCH ×4 (06:43→21:48)
[2020-03-30] MEDS: ACCU-CHEK COMFORT CURVE STRIP VI SCH ×4 (06:43→21:49)
[2020-03-30] MEDS ORDERED: SODIUM CHL 0.9% 1000 ML BAG XX ONE (07:00)
--- NOTE | 2020-03-30 07:30 | NUR ---
Opening Shift Note Assumed patient care from NOC RN. Patient is currently laying on left side receiving dialysis. Patient shows no signs of distress at this time. Per ear flap binder, dialysis was paused due to patient of "not feeling good." Dialysis had recently been restarted, BP currently 113/54. Safety precautions are in place. Will continue to monitor q 1hr and PRN.
[2020-03-30] MEDS: CALCIUM ACETATE 667 MG CAP PO SCH ×3 (08:00→17:53)
--- NOTE | 2020-03-30 08:36 | NUR ---
Patient Rounds Patient currently receiving dialysis. Patient is sleepy but arousable and able to answer questions at this time-will hold phoslo at this time for aspirations precautions. BP currently 113/54 per dialysis monitor.
[2020-03-30 09:00] VITALS: BP 113/54
--- NOTE | 2020-03-30 09:30 | NUR ---
Dialysis End Dialysis completed. Per mixer operator vacuum pan salt, 1.5L removed BP 131/68 HR 72. Patient shows no signs of distress at this time, respirations even and unlabored. Safety precautions in place, call light within reach. Will continue to monitor q 1hr and PRN.
[2020-03-30] MEDS: METOPROLOL TARTRATE 25 MG TAB PO SCH ×2 (10:00→21:48)
[2020-03-30] MEDS: amLODIPine BESYLATE 5 MG TAB PO SCH (10:00)
--- NOTE | 2020-03-30 10:05 | NUR ---
Respiratory note: PT HAS BEEN REFUSING CPAP AT NIGHT. EDUCATED PT ON CPAP MACHINE AND BENEFITS. PT SAYS SHE WILL NOT WEAR IT AT [facility].
[2020-03-30] MEDS: cefTRIAXone 1GM/50ML D5W 50 ML IV SCH (10:58)
[2020-03-30] MEDS: PANTOPRAZOLE 40 MG TAB PO SCH (10:59)
[2020-03-30] MEDS: ASPirin 81 mg TAB PO SCH (10:59)
[2020-03-30] MEDS: ENOXAPARIN SOD 30 MG/0.3 ML SYRINGE SC SCH (10:59)
[2020-03-30 13:00] VITALS: BP 129/67
--- NOTE | 2020-03-30 13:08 | NUR ---
MD Called Received call from Dr. Holland. updated on patient status. No new orders at this time.
--- NOTE | 2020-03-30 14:12 | NUR ---
Paged SS Paged conveyor tender social work coordinator.
--- NOTE | 2020-03-30 14:30 | NUR ---
SS Called Spoke with Bijal, health and social care teacher. Notified of patient discharge and pending chair time; Bijal reviewed patient file and clarified with charge Megha GONZALES. Per Bijal and Megha, patient may not be discharged at this time due to no dialysis chair time. \ truck driver salespersonCHACORTA menard.
--- NOTE | 2020-03-30 14:59 | NUR ---
CALLED MD: CALLED DR. RODRIGUEZ, LEFT MESSAGE TO INFORM HIM THAT PER GLASS FITTER BRENDAN AND DIRECTOR OF CASE MANAGEMENT PATIENT CAN NOT BE DISCHARGED TO [facility] WITHOUT OUT PATIENT DIALYSIS CHAIR TIME SET UP, THIS WOULD NOT BE CONSIDERED A SAFE DISCHARGE BEING THAT NO OUT PATIENT CHAIR TIME HAS BEEN CONFIRMED WITH DIALYSIS CLINIC. I ALSO STATED IN THE MESSAGE THAT PER SUPERVISOR RIDE ASSEMBLY MISSY NOTES THAT [facility]ILITY HAD ALREADY BEEN NOTIFIED THAT PATIENT WOULD NOT BE DISCHARGED UNTIL WEDNESDAY. EXTENSION FOR CALL BACK WAS PROVIDED FOR DR. RODRIGUEZ, AWAITING CALL BACK.
--- NOTE | 2020-03-30 15:10 | NUR ---
Dressing Change Dressing change to left forearm done. Site cleaned per wound care recommendations. Patient received partial bed bath with antifungal cream applied to abdominal folds and groin (reddened areas). Patient also cleaned of urine and stool. Z guard applied per wound care instructions. Patient repositioned with pillow on left side. Patient tolerated well, no signs of distress at this time. Respirations even and unlabored. Safety precautions in place. Call light within reach, will continue to monitor q1hr and PRN.
[2020-03-30 17:00] VITALS: BP 135/67
--- NOTE | 2020-03-30 19:30 | NUR ---
assumed care, pt. awake, no c/o pain, not in distress.
[2020-03-30] MEDS ORDERED: EPOETIN ALFA 10,000 UNIT/1 ML VIAL SC ONE (21:00)
[2020-03-30 22:00] VITALS: BP 131/65
[2020-03-31 05:17] VITALS: BP 134/59
[2020-03-31] MEDS: METOCLOPRAMIDE HCL 10 MG TAB PO SCH ×3 (05:32→21:20)
[2020-03-31] MEDS: InsuLIN REG 1unit/0.01ml Soln (100units/ml) SC SCH ×4 (06:05→21:20)
[2020-03-31] MEDS: ACCU-CHEK COMFORT CURVE STRIP VI SCH ×4 (06:06→21:21)
--- NOTE | 2020-03-31 07:30 | NUR ---
Opening Shift Note Assumed patient care from [facility] RN, Myrtle. Patient currently resting in bed with eyes closed, no signs of distress at this time. Respirations are even and unlabored. Will continue to monitor q1hr and PRN.
[2020-03-31] MEDS: CALCIUM ACETATE 667 MG CAP PO SCH ×3 (08:28→18:00)
[2020-03-31 09:21] VITALS: BP 152/71
[2020-03-31] MEDS: METOPROLOL TARTRATE 25 MG TAB PO SCH ×2 (09:58→21:20)
[2020-03-31] MEDS: ASPirin 81 mg TAB PO SCH (09:58)
[2020-03-31] MEDS: FERROUS SULFATE 300 MG/5 ML ORAL LIQ PO SCH (10:00)
[2020-03-31] MEDS: amLODIPine BESYLATE 5 MG TAB PO SCH (10:01)
[2020-03-31] MEDS: PANTOPRAZOLE 40 MG TAB PO SCH (10:01)
[2020-03-31] MEDS: ENOXAPARIN SOD 30 MG/0.3 ML SYRINGE SC SCH (10:01)
--- NOTE | 2020-03-31 10:15 | NUR ---
at Station Dr. Valenzuela at station. aware of patient's pending dialysis chair time for discharge. Per Dr. Valenzuela, continue with plan of care and discharge plan upon setting up dialysis chair time.
--- NOTE | 2020-03-31 12:32 | NUR ---
Nutrition Followup Notes Pt wt is 82.0 kg Pt was sleeping when rounded this morning. Pt is with a CCHO 60g diet with an inadequate appetite aeb < 50% PO intake x3 meals per RN doc. Est energy needs ABW 66 [id number] kcal (23-25 kcal/kg ABW) Est protein needs: 52-66 g (0.8-1.0 g/kg ABW r/t elev RFT wounds) Will reassess prn. LABS: BUN 26 H, Creat 3.57 H, Ca 7.6 L, Alb 2.5 L GI: Pt had 1 BM on 03/29 per RN doc. BS: 17 mod risk. Refer to wound assessment report for full details. PES: Altered nutrition related lab values r.t current chronic medical condition aeb elev RFT hyperglycemia, mod hypoalb Decreased nutrient needs r/t adiposity aeb pt`s high BMI of 31.8 kgm2 Comments Will continue to monitor PO status, skin status, pertinent labs and weight trends. Will f/u in 2-3 days 1) Consider MVI/C bid 2) Refer to CDE on DC 3) Consider renal specific 60 gm protein 2 gm Na along with current diet 4) Continue current plan of care
[2020-03-31 12:35] VITALS: BP 120/58
--- NOTE | 2020-03-31 12:38 | NUR ---
at Station Dr. Holland at station. aware of pending dialysis chair time. No new orders at this time.
[2020-03-31 17:00] VITALS: BP 124/57
--- NOTE | 2020-03-31 19:15 | NUR ---
Closing Shift Note Endorsed care to NOC Myrtle WHATLEY. Updated on plan of care and pending dialysis chair time.
--- NOTE | 2020-03-31 19:20 | NUR ---
assumed care, pt. awake, no c/o pain, not in distress.
[2020-03-31 22:00] VITALS: BP 132/68
[2020-04-01 05:00] VITALS: BP 157/70
[2020-04-01] MEDS: METOCLOPRAMIDE HCL 10 MG TAB PO SCH ×2 (05:21→14:17)
[2020-04-01] MEDS: ACCU-CHEK COMFORT CURVE STRIP VI SCH ×2 (06:15→11:54)
[2020-04-01] MEDS: InsuLIN REG 1unit/0.01ml Soln (100units/ml) SC SCH ×2 (06:15→11:30)
[2020-04-01] MEDS: CALCIUM ACETATE 667 MG CAP PO SCH ×2 (08:23→12:07)
[2020-04-01 09:02] VITALS: BP 147/74
[2020-04-01] MEDS: amLODIPine BESYLATE 5 MG TAB PO SCH (09:27)
[2020-04-01] MEDS: PANTOPRAZOLE 40 MG TAB PO SCH (09:27)
[2020-04-01] MEDS: ASPirin 81 mg TAB PO SCH (09:27)
[2020-04-01] MEDS: ENOXAPARIN SOD 30 MG/0.3 ML SYRINGE SC SCH (09:28)
[2020-04-01] MEDS: METOPROLOL TARTRATE 25 MG TAB PO SCH (09:28)
[2020-04-01] MEDS: FERROUS SULFATE 300 MG/5 ML ORAL LIQ PO SCH (09:28)
--- NOTE | 2020-04-01 11:21 | NUR ---
WOUND CARE NOTE: WOUND CARE IN TO SEE PATIENT FOR SKIN INTEGRITY MONITORING. PATIENT'S INTERTRIGO TO LEFT AXILLA, MEDIAL ABDOMINAL FOLD, AND GROIN FOLDS HAS RESOLVED. SKIN TEAR TO LEFT ELBOW HAS RESOLVED. MASD TO BILATERAL BUTTOCKS IS RESOLVING. RECOMMEND: CONTINUE WITH APPLICATION OF MOISTURE BARRIER CREAM TO BUTTOCKS. CONTINUE SKIN/WOUND CARE PLAN. CONTINUED MONITORING BY WOUND CARE TEAM. Addendum: 04/01/20 at 1435 by LAURE WHITFIELD RN RN Amended: Links added.
--- NOTE | 2020-04-01 12:11 | NUR ---
PT SEEN BY DR. MARSH, PT INSTRUCTED SHE WILL GET HEMODIALYSIS TOMORROW, RECEIVED ORDER TO CHANGE THE DIET TO RENAL CCHO DIET, PT MADE AWARE.
[2020-04-01 13:00] VITALS: BP 132/61
--- NOTE | 2020-04-01 14:09 | NUR ---
SPOKE WITH TERRANCE TO CONFIRM CHAIR TIME, SHE SAID SHE WILL CALL [facility] TO CONFIRM IT.
--- NOTE | 2020-04-01 15:50 | NUR ---
spoke with Laurita, transportation will knot picker cloth the pt 1630.
--- NOTE | 2020-04-01 16:01 | NUR ---
CALLED FAMILY SPOKE WITH SISTER BRIDGER, MADE AWARE PT WILL BE TRANSFERRED TO [facility] THIS AFTERNOON AT 1630PM.
[2020-04-01 16:10] VITALS: BP 130/61
--- NOTE | 2020-04-01 16:16 | NUR ---
D/C Planning Placed follow called to [facility] dialysis. Per Esther with [facility] dialysis patient chair time will be on , , at 3pm. Patient first treatment will me on Wednesday04/02/20 at 14:30. Patient will be transferring to [facility] today, transportation will be with [employer] via [employer] with a 16:30 pick up man time. Contact Madison with [facility] advising him patient chair time has been arranged and bedside nurse will contact to give report. Informed CHACORTA Mancilla.
--- NOTE | 2020-04-01 16:47 | NUR ---
Discharged to [facility]. All questions and concerns addressed. Patient verbalized understanding. Medication reconciliation form completed and copy given to patient. IV removed with catheter intact, pressure dressing applied. Telemetry unit returned to ICU. Patient taken to vehicle via gurney with all personal belongings, accompanied by transportation staff . No distress noted at time of departure.
[2020-04-01 17:00] VITALS: BP 154/72
[2020-04-02] MEDS ORDERED: SODIUM CHL 0.9% 1000 ML BAG XX ONE (07:00)
[2020-04-02] MEDS ORDERED: EPOETIN ALFA 10,000 UNIT/1 ML VIAL SC ONE (21:00)
== END 2020-04-01 16:40 | DRG 674 ==
LOC: ER 01:15 → EDBD 01:15 → TELE 01:16 → TELE-WESTW 20:00
PROVIDERS: ADMIT Nurse Practitioner Acute Care; ATTEND Internal Medicine
PROC: 0JH63XZ Insertion of Tunneled Vascular Access Device into Chest Subcutaneous Tissue and Fascia, Percutaneous Approach (ICD-10-PCS; principal; 2020-03-24)
PROC: 02H633Z Insertion of Infusion Device into Right Atrium, Percutaneous Approach (ICD-10-PCS; 2020-03-24)
PROC: B5181ZA Fluoroscopy of Superior Vena Cava using Low Osmolar Contrast, Guidance (ICD-10-PCS; 2020-03-24)
PROC: 5A1D70Z Performance of Urinary Filtration, Intermittent, Less than 6 Hours Per Day (ICD-10-PCS; 2020-03-27)
PROC: 5A1D70Z Performance of Urinary Filtration, Intermittent, Less than 6 Hours Per Day (ICD-10-PCS; 2020-03-28)
PROC: 5A09357 Assistance with Respiratory Ventilation, Less than 24 Consecutive Hours, Continuous Positive Airway Pressure (ICD-10-PCS; 2020-03-28)
PROC: B2111ZZ Fluoroscopy of Multiple Coronary Arteries using Low Osmolar Contrast (ICD-10-PCS; 2020-03-29)
PROC: 4A023N7 Measurement of Cardiac Sampling and Pressure, Left Heart, Percutaneous Approach (ICD-10-PCS; 2020-03-29)
PROC: B2151ZZ Fluoroscopy of Left Heart using Low Osmolar Contrast (ICD-10-PCS; 2020-03-29)
PROC: B548ZZA Ultrasonography of Superior Vena Cava, Guidance (ICD-10-PCS; 2020-03-29)
PROC: 5A1D70Z Performance of Urinary Filtration, Intermittent, Less than 6 Hours Per Day (ICD-10-PCS; 2020-03-30)
DX: N17.0 Acute kidney failure with tubular necrosis (principal); D68.59 Other primary thrombophilia; I13.2 Hypertensive heart and chronic kidney disease with heart failure and with stage 5 chronic kidney disease, or end stage renal disease; E87.1 Hypo-osmolality and hyponatremia; E86.0 Dehydration; N18.6 End stage renal disease; E87.6 Hypokalemia; E66.9 Obesity, unspecified; B19.20 Unspecified viral hepatitis C without hepatic coma; D63.1 Anemia in chronic kidney disease; I50.9 Heart failure, unspecified; E79.0 Hyperuricemia without signs of inflammatory arthritis and tophaceous disease; E78.5 Hyperlipidemia, unspecified; Z23 Encounter for immunization; Z60.2 Problems related to living alone; E11.22 Type 2 diabetes mellitus with diabetic chronic kidney disease; E83.39 Other disorders of phosphorus metabolism; Z20.828 Contact with and (suspected) exposure to other viral communicable diseases; Z79.4 Long term (current) use of insulin; Z79.82 Long term (current) use of aspirin; Z79.899 Other long term (current) drug therapy; Z80.6 Family history of leukemia; Z82.49 Family history of ischemic heart disease and other diseases of the circulatory system; Z99.2 Dependence on renal dialysis
CPT/HCPCS: 36415; 36561; 71045; 76775; 76942; 77001; 80048; 80053; 80061; 80074; 81001; 82306; 82550; 82728; 82962; 83036; 83540; 83550; 83605; 83735; 83880; 83970; 84100; 84132; 84484; 84550; 85007; 85025; 85027; 85610; 85730; 86850; 86900; 86901; 87040; 87086; 87088; 87186; 87426; 90935; 93005; 93306; 93458; 97116; 97163; 97530; 99152; 99153; G0378; J0696; J0885; J1642; J1815; J2001; J2250; J2405; J2543; J3480; Q9967

== ENCOUNTER 2020-04-26 10:06 | Emergency (ER) | payer OTHER ==
[~2020-04-26] VITALS: Ht 165.1 cm; Wt 72.6 kg
[~2020-04-26 10:06] MED LIST changes: +AML5T PO; +CALC667C5 PO
[2020-04-26 12:47] LABS: Basophils # (auto) 0 10 ^3/uL (0-0.2); Basophils % (auto) 0.1 % (0.0-2.0); Eosinophils # (auto) 0 10 ^3/uL (0-0.8); Hematocrit 41.2 % (36.0-46.0); Hemoglobin 13.4 g/dL (12.2-16.2); Lymphocytes # (auto) 0.5 10 ^3/uL (0.4-5.4); Mean Corpuscular Hemoglobin 32.8 pg (28.0-32.0); Mean Corpuscular Hgb Conc. 32.4 g/dL (32.0-36.0); Mean Corpuscular Volume 101.1 fL (80.0-100.0); Monocytes # (auto) 0.8 10 ^3/uL (0-1.3); Monocytes % (auto) 5.2 % (0.0-12.0); Neutrophils # (auto) 14.1 10 ^3/uL (1.6-8.6); Neutrophils % (auto) 91.7 % (37.0-80.0); Platelet Count (auto) 248 10^3/uL (140-450); Red Blood Cells 4.08 10^6/uL (4.0-5.20); Red Cell Distribution Width 15.1 % (11.8-14.3); White Blood Cell 15.4 10^3/uL (4.4-10.8)
[2020-04-26 13:02] LABS: INR 1.03 (0.9-1.15); Partial Thromboplastin Time 29.6 sec (23.0-31.2)
[2020-04-26 13:17] LABS: Albumin 3.5 g/dL (3.4-5.0); Calcium 8.3 mg/dL (8.5-10.1); Potassium 4.9 mmol/L (3.5-5.1)
[2020-04-26 13:25] LABS: Bilirubin, Total 0.4 mg/dL (0.2-1.0); Total Protein 8.5 g/dL (6.4-8.2)
[2020-04-26 13:36] VITALS: BP 155/79
== END 2020-04-26 16:21 | disposition home or self-care (01) ==
LOC: ER 10:06 → EDBD 10:06 → ER 16:21
DX: R53.1 Weakness (principal); E11.22 Type 2 diabetes mellitus with diabetic chronic kidney disease; I13.0 Hypertensive heart and chronic kidney disease with heart failure and stage 1 through stage 4 chronic kidney disease, or unspecified chronic kidney disease; N18.9 Chronic kidney disease, unspecified; I50.9 Heart failure, unspecified; Z90.49 Acquired absence of other specified parts of digestive tract
CPT/HCPCS: 36415; 70450; 71045; 72192; 80053; 83880; 84484; 85025; 85610; 85730; 93005

== ENCOUNTER 2020-04-30 12:45 | Inpatient (IN) | payer OTHER ==
[~2020-04-30] VITALS: Ht 157.5 cm; Wt 76.8 kg
[2020-04-30 15:48] LABS: Hematocrit 36.8 % (36.0-46.0); Hemoglobin 12.2 g/dL (12.2-16.2); Mean Corpuscular Hemoglobin 32.6 pg (28.0-32.0); Mean Corpuscular Hgb Conc. 33.2 g/dL (32.0-36.0); Mean Corpuscular Volume 98.1 fL (80.0-100.0); Platelet Count (auto) 250 10^3/uL (140-450); Red Blood Cells 3.75 10^6/uL (4.0-5.20); Red Cell Distribution Width 14.2 % (11.8-14.3); White Blood Cell 13.1 10^3/uL (4.4-10.8)
[2020-04-30 15:55] LABS: Basophils % (manual) 0 (0.0-2.0); Blast Cells 0; Eosinophils % (manual) 0 (0-7); Metamyelocytes % 0; Promyelocytes % 0; Reactive Lymphocytes 0
[2020-04-30 15:56] LABS: Calcium 7.9 mg/dL (8.5-10.1); Potassium 4.4 mmol/L (3.5-5.1)
[2020-04-30 15:57] LABS: INR 0.97 (0.9-1.15); Partial Thromboplastin Time 27.1 sec (23.0-31.2)
[2020-04-30 15:58] LABS: BUN/Creatinine Ratio 18.6
[2020-04-30 16:11] LABS: Bilirubin, Total 0.3 mg/dL (0.2-1.0); Total Protein 7.8 g/dL (6.4-8.2)
[2020-04-30 16:20] LABS: Band Neutrophils % (manual) 6; Lymphocytes % (manual) 6 (10.0-50.0); Monocytes % (manual) 9 (0-12); Myelocytes % 1
[2020-05-01] MEDS ORDERED: ONDANSETRON HCL 4 MG/2 ML VIAL IV PRN (02:30)
[2020-05-01] MEDS ORDERED: DEXTROSE (50%) 50ML SYRG IV PRN (02:30)
[2020-05-01] MEDS: InsuLIN REG 1unit/0.01ml Soln (100units/ml) SC SCH ×4 (07:00→22:00)
[2020-05-01] MEDS: ACCU-CHEK COMFORT CURVE STRIP VI SCH ×4 (07:49→22:00)
[2020-05-01] MEDS: BUMETANIDE 1 MG TAB PO SCH ×2 (10:48→17:46)
[2020-05-01] MEDS: PANTOPRAZOLE 40 MG/10 ML VIAL INJ IV SCH (10:48)
[2020-05-01] MEDS: CARVEDILOL 3.125 MG TAB PO SCH ×2 (10:49→22:00)
[2020-05-01] MEDS: amLODIPine BESYLATE 5 MG TAB PO SCH (10:49)
[2020-05-01 12:51] LABS: Hematocrit 33.2 % (36.0-46.0); Hemoglobin 11.1 g/dL (12.2-16.2); Mean Corpuscular Hemoglobin 32.9 pg (28.0-32.0); Mean Corpuscular Hgb Conc. 33.4 g/dL (32.0-36.0); Mean Corpuscular Volume 98.6 fL (80.0-100.0); Platelet Count (auto) 210 10^3/uL (140-450); Red Blood Cells 3.37 10^6/uL (4.0-5.20); Red Cell Distribution Width 13.9 % (11.8-14.3); White Blood Cell 9.6 10^3/uL (4.4-10.8)
[2020-05-01 12:59] LABS: Basophils % (manual) 0 (0.0-2.0); Blast Cells 0; Promyelocytes % 0; Reactive Lymphocytes 0
[2020-05-01 13:13] LABS: Calcium 7.9 mg/dL (8.5-10.1); Potassium 4.1 mmol/L (3.5-5.1)
[2020-05-01 13:15] LABS: BUN/Creatinine Ratio 19.7
[2020-05-01 13:34] LABS: Band Neutrophils % (manual) 7; Eosinophils % (manual) 3 (0-7); Lymphocytes % (manual) 8 (10.0-50.0); Metamyelocytes % 2; Monocytes % (manual) 10 (0-12); Myelocytes % 1
[2020-05-01] MEDS: ATORVASTATIN 20 MG TAB PO SCH (22:00)
[2020-05-02 06:22] LABS: Basophils # (auto) 0 10 ^3/uL (0-0.2); Basophils % (auto) 0.2 % (0.0-2.0); Eosinophils # (auto) 0.1 10 ^3/uL (0-0.8); Eosinophils % (auto) 1.4 % (0.0-7.0); Hematocrit 30.9 % (36.0-46.0); Hemoglobin 10.5 g/dL (12.2-16.2); Lymphocytes # (auto) 1.1 10 ^3/uL (0.4-5.4); Lymphocytes % (auto) 13.3 % (10.0-50.0); Mean Corpuscular Hemoglobin 32.9 pg (28.0-32.0); Mean Corpuscular Hgb Conc. 33.9 g/dL (32.0-36.0); Mean Corpuscular Volume 97.1 fL (80.0-100.0); Monocytes # (auto) 0.8 10 ^3/uL (0-1.3); Neutrophils # (auto) 6.3 10 ^3/uL (1.6-8.6); Neutrophils % (auto) 75.1 % (37.0-80.0); Platelet Count (auto) 195 10^3/uL (140-450); Red Blood Cells 3.18 10^6/uL (4.0-5.20); Red Cell Distribution Width 13.9 % (11.8-14.3); White Blood Cell 8.4 10^3/uL (4.4-10.8)
[2020-05-02 06:44] LABS: BUN/Creatinine Ratio 20.4; Calcium 7.8 mg/dL (8.5-10.1)
[2020-05-02] MEDS ORDERED: SODIUM CHL 0.9% 1000 ML BAG XX ONE (07:00)
[2020-05-02] MEDS: InsuLIN REG 1unit/0.01ml Soln (100units/ml) SC SCH ×4 (07:00→21:37)
[2020-05-02] MEDS: BUMETANIDE 1 MG TAB PO SCH ×2 (07:28→18:39)
[2020-05-02] MEDS: ACCU-CHEK COMFORT CURVE STRIP VI SCH ×4 (07:29→21:33)
[2020-05-02] MEDS: amLODIPine BESYLATE 5 MG TAB PO SCH (10:33)
[2020-05-02] MEDS: CARVEDILOL 3.125 MG TAB PO SCH ×2 (10:33→21:33)
[2020-05-02] MEDS: PANTOPRAZOLE 40 MG/10 ML VIAL INJ IV SCH (10:33)
[2020-05-02 13:10] VITALS: BP 120/69
[2020-05-02] MEDS ORDERED: AML5T PO (13:31)
[2020-05-02 16:00] VITALS: BP 117/57
[2020-05-02 17:55] VITALS: BP 145/70
[2020-05-02] MEDS: ATORVASTATIN 20 MG TAB PO SCH (21:33)
[2020-05-02 22:00] VITALS: BP_SYST 124; BP_SYST 157; BP_DIAS 69; BP_DIAS 82
[2020-05-03] MEDS: ACETAMINOPHEN 325 MG TAB PO PRN ×2 (00:14→10:48)
[2020-05-03 05:00] VITALS: BP 131/59
[2020-05-03] MEDS: BUMETANIDE 1 MG TAB PO SCH ×2 (05:30→18:30)
[2020-05-03] MEDS: ACCU-CHEK COMFORT CURVE STRIP VI SCH ×4 (06:41→21:50)
[2020-05-03] MEDS: InsuLIN REG 1unit/0.01ml Soln (100units/ml) SC SCH ×4 (06:42→21:50)
[2020-05-03] MEDS ORDERED: SODIUM CHL 0.9% 1000 ML BAG XX ONE (07:00)
[2020-05-03 07:16] LABS: Hematocrit 29.6 % (36.0-46.0); Hemoglobin 9.7 g/dL (12.2-16.2); Mean Corpuscular Hemoglobin 31.9 pg (28.0-32.0); Mean Corpuscular Hgb Conc. 32.7 g/dL (32.0-36.0); Mean Corpuscular Volume 97.5 fL (80.0-100.0); Platelet Count (auto) 184 10^3/uL (140-450); Red Blood Cells 3.04 10^6/uL (4.0-5.20); Red Cell Distribution Width 13.8 % (11.8-14.3); White Blood Cell 7.6 10^3/uL (4.4-10.8)
[2020-05-03 07:28] LABS: Band Neutrophils % (manual) 0; Basophils % (manual) 0 (0.0-2.0); Blast Cells 0; Metamyelocytes % 0; Myelocytes % 0; Promyelocytes % 0; Reactive Lymphocytes 0
[2020-05-03 08:00] VITALS: BP 121/65
[2020-05-03 09:00] VITALS: BP 121/65
[2020-05-03 09:14] LABS: Eosinophils % (manual) 2 (0-7); Lymphocytes % (manual) 26 (10.0-50.0); Monocytes % (manual) 4 (0-12)
[2020-05-03] MEDS: CARVEDILOL 3.125 MG TAB PO SCH ×2 (10:00→21:50)
[2020-05-03] MEDS: PANTOPRAZOLE 40 MG TAB PO SCH (10:21)
[2020-05-03] MEDS: amLODIPine BESYLATE 5 MG TAB PO SCH (10:22)
[2020-05-03 13:00] VITALS: BP 130/68
[2020-05-03] MEDS ORDERED: EPOETIN ALFA 10,000 UNIT/1 ML VIAL SC ONE (21:00)
[2020-05-03] MEDS: ATORVASTATIN 20 MG TAB PO SCH (21:50)
[2020-05-03 22:00] VITALS: BP 157/75
[2020-05-04 05:00] VITALS: BP 143/75
[2020-05-04] MEDS: InsuLIN REG 1unit/0.01ml Soln (100units/ml) SC SCH ×2 (06:14→11:30)
[2020-05-04] MEDS: ACCU-CHEK COMFORT CURVE STRIP VI SCH ×3 (06:14→17:34)
[2020-05-04] MEDS: BUMETANIDE 1 MG TAB PO SCH ×2 (06:14→18:19)
[2020-05-04 08:38] VITALS: BP 135/89
[2020-05-04] MEDS: CARVEDILOL 3.125 MG TAB PO SCH (10:20)
[2020-05-04] MEDS: PANTOPRAZOLE 40 MG TAB PO SCH (10:20)
[2020-05-04] MEDS: amLODIPine BESYLATE 5 MG TAB PO SCH (10:21)
[2020-05-04 12:16] VITALS: BP 135/89
[2020-05-04 12:56] VITALS: BP 138/62
[2020-05-04 14:12] LABS: Calcium 7.5 mg/dL (8.5-10.1); Potassium 3.3 mmol/L (3.5-5.1)
[2020-05-04 14:15] LABS: BUN/Creatinine Ratio 13.5
== END 2020-05-04 19:10 | DRG 291 ==
LOC: ER 12:45 → EDBD 12:45 → OVERFLOW 12:46 → WEST WING 05-02 17:43
PROVIDERS: ADMIT Nurse Practitioner; ATTEND Internal Medicine
PROC: 5A1D70Z Performance of Urinary Filtration, Intermittent, Less than 6 Hours Per Day (ICD-10-PCS; principal; 2020-05-01)
PROC: 5A1D70Z Performance of Urinary Filtration, Intermittent, Less than 6 Hours Per Day (ICD-10-PCS; 2020-05-02)
DX: I13.2 Hypertensive heart and chronic kidney disease with heart failure and with stage 5 chronic kidney disease, or end stage renal disease (principal); N18.6 End stage renal disease; E44.1 Mild protein-calorie malnutrition; E87.2 Acidosis; R53.1 Weakness; D63.1 Anemia in chronic kidney disease; E27.8 Other specified disorders of adrenal gland; E66.9 Obesity, unspecified; E78.5 Hyperlipidemia, unspecified; L89.522 Pressure ulcer of left ankle, stage 2; E86.0 Dehydration; D72.829 Elevated white blood cell count, unspecified; Z20.828 Contact with and (suspected) exposure to other viral communicable diseases; I50.9 Heart failure, unspecified; R62.7 Adult failure to thrive; Z75.1 Person awaiting admission to adequate facility elsewhere; Z80.6 Family history of leukemia; Z82.49 Family history of ischemic heart disease and other diseases of the circulatory system; Z90.49 Acquired absence of other specified parts of digestive tract; Z99.2 Dependence on renal dialysis; Z68.31 Body mass index [BMI] 31.0-31.9, adult
CPT/HCPCS: 36415; 71250; 74176; 80048; 80053; 82962; 83605; 83690; 85007; 85025; 85027; 85610; 85730; 87040; 87081; 87426; 90935; 93005; 97163; 97530; C9113; G0378; J0885; J1815

== ENCOUNTER 2020-05-22 16:50 | Emergency (ER) | payer OTHER ==
[~2020-05-22] VITALS: Ht 162.6 cm; Wt 113.4 kg
[~2020-05-22 16:50] MED LIST changes: -FUR20T; -HYDR-4296 PO
[2020-05-22 17:22] VITALS: BP 168/98
== END 2020-05-23 06:14 | disposition home or self-care (01) ==
LOC: ER 16:50 → EDBD 16:50 → ER 05-23 06:14
DX: Z49.01 Encounter for fitting and adjustment of extracorporeal dialysis catheter (principal)
CPT/HCPCS: 71045

== ENCOUNTER 2021-01-03 21:00 | Emergency (ER) | payer MEDICARE, OTHER ==
[~2021-01-03] VITALS: Ht 167.6 cm; Wt 90.7 kg
[2021-01-04 04:39] LABS: Hematocrit 31.3 % (36.0-46.0); Hemoglobin 10.8 g/dL (12.2-16.2); Mean Corpuscular Hemoglobin 33.8 pg (28.0-32.0); Mean Corpuscular Hgb Conc. 34.6 g/dL (32.0-36.0); Mean Corpuscular Volume 97.6 fL (80.0-100.0); Red Blood Cells 3.21 10^6/uL (4.0-5.20); Red Cell Distribution Width 14.9 % (11.8-14.3); White Blood Cell 8.8 10^3/uL (4.4-10.8)
[2021-01-04 04:46] LABS: Basophils % (manual) 0 (0.0-2.0); Blast Cells 0; Eosinophils % (manual) 0 (0-7); Metamyelocytes % 0; Myelocytes % 0; Promyelocytes % 0; Reactive Lymphocytes 0
[2021-01-04 05:11] LABS: Albumin 2.9 g/dL (3.4-5.0); BUN/Creatinine Ratio 9.6; Magnesium 1.9 mg/dL (1.6-2.6)
[2021-01-04 05:14] LABS: Bilirubin, Total 0.2 mg/dL (0.2-1.0); Phosphorus 3.2 mg/dL (2.5-4.90); Total Protein 7.9 g/dL (6.4-8.2)
[2021-01-04 05:52] LABS: Band Neutrophils % (manual) 5; Lymphocytes % (manual) 2 (10.0-50.0); Monocytes % (manual) 2 (0-12)
[2021-01-04 08:00] VITALS: BP 148/80
[2021-01-04] MEDS ORDERED: NEOMYCIN-BACITRACIN-POLYM UNITDOSE PKG TOP OINT TOP ONE (17:28)
== END 2021-01-04 12:00 | disposition home or self-care (01) ==
LOC: EDBD 21:00 → ER 21:00
DX: I13.2 Hypertensive heart and chronic kidney disease with heart failure and with stage 5 chronic kidney disease, or end stage renal disease (principal); E11.22 Type 2 diabetes mellitus with diabetic chronic kidney disease; N18.6 End stage renal disease; I50.9 Heart failure, unspecified; Z99.2 Dependence on renal dialysis; E78.5 Hyperlipidemia, unspecified; Z90.49 Acquired absence of other specified parts of digestive tract; Z79.4 Long term (current) use of insulin; Z79.82 Long term (current) use of aspirin; Z79.899 Other long term (current) drug therapy
CPT/HCPCS: 36415; 70450; 71045; 80053; 83735; 84100; 84484; 85007; 85027; 93005

== ENCOUNTER 2021-01-27 16:11 | Emergency (ER) | payer MEDICARE ==
[~2021-01-27] VITALS: Ht 157.5 cm; Wt 71.2 kg
[2021-01-27] MEDS ORDERED: CATHFLO ACTIVASE (ALTEPLASE) 2 MG VIAL IV ONE (17:15)
[2021-01-27 23:00] VITALS: BP 135/98
== END 2021-01-27 23:03 | disposition home or self-care (01) ==
LOC: EDBD 16:11 → ER 16:11
DX: I13.0 Hypertensive heart and chronic kidney disease with heart failure and stage 1 through stage 4 chronic kidney disease, or unspecified chronic kidney disease (principal); E11.22 Type 2 diabetes mellitus with diabetic chronic kidney disease; N18.9 Chronic kidney disease, unspecified; E78.5 Hyperlipidemia, unspecified; Z99.2 Dependence on renal dialysis; Z79.4 Long term (current) use of insulin; Z79.82 Long term (current) use of aspirin; Z79.899 Other long term (current) drug therapy; Z90.49 Acquired absence of other specified parts of digestive tract
CPT/HCPCS: 96374; 99283; J2997

== ENCOUNTER 2021-12-05 15:17 | Inpatient (IN) | payer MEDICARE ==
[~2021-12-05] VITALS: Ht 157.5 cm; Wt 75.5 kg
[2021-12-05] MEDS ORDERED: CATHFLO ACTIVASE (ALTEPLASE) 2 MG VIAL IV ONE (16:00)
[2021-12-05 16:53] LABS: Basophils # (auto) 0 10 ^3/uL (0-0.2); Basophils % (auto) 0.3 % (0.0-2.0); Eosinophils # (auto) 0.1 10 ^3/uL (0-0.8); Eosinophils % (auto) 1.4 % (0.0-7.0); Hematocrit 34.4 % (36.0-46.0); Hemoglobin 11.5 g/dL (12.2-16.2); Lymphocytes # (auto) 1.5 10 ^3/uL (0.4-5.4); Lymphocytes % (auto) 21.9 % (10.0-50.0); Mean Corpuscular Hemoglobin 33.3 pg (28.0-32.0); Mean Corpuscular Hgb Conc. 33.5 g/dL (32.0-36.0); Mean Corpuscular Volume 99.6 fL (80.0-100.0); Monocytes # (auto) 0.4 10 ^3/uL (0-1.3); Monocytes % (auto) 6.3 % (0.0-12.0); Neutrophils # (auto) 4.9 10 ^3/uL (1.6-8.6); Neutrophils % (auto) 70.1 % (37.0-80.0); Nucleated Red Blood Cells % 0.1 %; Red Blood Cells 3.45 10^6/uL (4.0-5.20); Red Cell Distribution Width 13.4 % (11.8-14.3)
[2021-12-05 17:19] LABS: Albumin 3.5 g/dL (3.4-5.0); Anion Gap 8 (5-15); Calcium 8.9 mg/dL (8.5-10.1); Carbon Dioxide 24 mmol/L (21-32); Chloride 104 mmol/L (98-107); Glucose 150 mg/dL (74-106); Potassium 4.6 mmol/L (3.5-5.1); Sodium 136 mmol/L (136-145)
[2021-12-05 17:22] LABS: Alanine Aminotransferase 26 U/L (13-56); Alkaline Phosphatase 88 U/L (45-117); Aspartate Aminotransferase 20 U/L (15-37); BUN/Creatinine Ratio 19.1; Bilirubin, Total 0.3 mg/dL (0.2-1.0); GFR African American 12 mL/min; GFR Non-African American 10 mL/min; Total Protein 7.7 g/dL (6.4-8.2)
[2021-12-05 17:32] LABS: Blood Urea Nitrogen 89 mg/dL (7-18)
[2021-12-05 18:36] LABS: Partial Thromboplastin Time 135.2 sec (24.6-33.4)
[2021-12-06] MEDS ORDERED: hydrALAZINE HCL 20 MG/ML VL IV PRN (21:30)
[2021-12-06 23:56] VITALS: BP 109/63
[2021-12-07] VITALS (7 sets, daily range): BP systolic 120–175; BP diastolic 72–88
[2021-12-07] MEDS ORDERED: ACETAMINOPHEN 500 MG TAB PO PRN (15:45)
[2021-12-08] MEDS ORDERED: SODIUM CHL 0.9% 1000 ML BAG XX ONE (07:00)
[2021-12-08 09:00] VITALS: BP 156/80
[2021-12-08] MEDS ORDERED: ALBUMIN 25% 100 ML IV ONE (12:20)
[2021-12-08] MEDS: ALBUMIN 25% 100 ML IV SCH ×2 (12:20→13:00)
[2021-12-08 13:00] VITALS: BP 111/63
[2021-12-08 16:59] VITALS: BP 147/70
[2021-12-08 22:00] VITALS: BP 115/71
[2021-12-08] MEDS ORDERED: DEXTROSE (50%) 50ML SYRG IV PRN (23:00)
[2021-12-08] MEDS ORDERED: TEMAZEPAM 15 MG CAP PO ONE (23:00)
[2021-12-09] MEDS: ACCU-CHEK COMFORT CURVE STRIP VI SCH ×3 (00:43→12:42)
[2021-12-09 05:00] VITALS: BP 141/73
[2021-12-09] MEDS: InsuLIN REG 1unit/0.01ml Soln (100units/ml) SC SCH ×3 (06:00→12:00)
[2021-12-09 09:00] VITALS: BP 135/76
[2021-12-09 13:00] VITALS: BP 145/73
[2021-12-09 16:59] VITALS: BP 148/79
== END 2021-12-09 18:55 | DRG 314 ==
LOC: EDBD 15:17 → ER 15:17 → OVERFLOW 12-06 10:35 → WEST WING 12-06 22:02
PROVIDERS: ADMIT Internal Medicine; ATTEND Internal Medicine
PROC: 5A1D70Z Performance of Urinary Filtration, Intermittent, Less than 6 Hours Per Day (ICD-10-PCS; principal; 2021-12-08)
DX: T82.898A Other specified complication of vascular prosthetic devices, implants and grafts, initial encounter (principal); N18.6 End stage renal disease; I13.2 Hypertensive heart and chronic kidney disease with heart failure and with stage 5 chronic kidney disease, or end stage renal disease; I25.10 Atherosclerotic heart disease of native coronary artery without angina pectoris; I16.0 Hypertensive urgency; E11.22 Type 2 diabetes mellitus with diabetic chronic kidney disease; E78.5 Hyperlipidemia, unspecified; Y84.1 Kidney dialysis as the cause of abnormal reaction of the patient, or of later complication, without mention of misadventure at the time of the procedure; D63.8 Anemia in other chronic diseases classified elsewhere; Z20.822 Contact with and (suspected) exposure to COVID-19; I50.9 Heart failure, unspecified; Z80.6 Family history of leukemia; Z82.49 Family history of ischemic heart disease and other diseases of the circulatory system; Z99.2 Dependence on renal dialysis; Z90.49 Acquired absence of other specified parts of digestive tract; Y92.89 Other specified places as the place of occurrence of the external cause
CPT/HCPCS: 36415; 71045; 80053; 82962; 85025; 85610; 85730; 87081; 90935; 96374; 97163; G0378; J1642; P9047